=== PATIENT | male | born 1965 | race Caucasian/White ===

== ENCOUNTER 2022-05-03 10:24 | Outpatient (CLI) | payer MEDICARE, SELFPAY ==
--- NOTE | ~2022-05-03 | XR_ITS ---
EXAMINATION: XR chest 2V Exam Date/Time: 05/03/2022 10:40 CDT HISTORY: R06.02 - Shortness of breath, COPD Comparison: 07/07/2019 and 07/17/2017. RESULT: Lines, tubes, and devices: None. Lungs and pleura: Bibasilar scar/atelectasis. Patchy groundglass opacities in the right lower lobe. Cardiomediastinal silhouette: Stable cardiomediastinal silhouette. Other: No acute osseous or upper abdominal finding. IMPRESSION: Right lung opacities may reflect infection, including atypical/viral infection. Bibasilar scar/atelec tasis. Reviewed, dictated and finalized at location K. IMPRESSION: Right lung opacities may reflect infection, including atypical/viral infection. Bibasilar scar/atelectasis.
[2022-05-03 10:57] LABS: Basophils Absolute Auto 0.1 K/mm3 (0.0-0.1); Basophils Percent Auto 0.8 % (0.2-1.2); Eosinophils Absolute Auto 0.1 K/mm3 (0-0.3); Eosinophils Percent Auto 1.4 % (0-4.4); Hemoglobin 16.5 g/dL (14.0-18.0); Immature Granulocyte Absolute 0.05 K/mm3 (0.00-0.031); Immature Granulocyte Percent A 0.7 % (0-0.5); Lymphocytes Absolute Auto 2.11 K/mm3 (0.9-3.2); Lymphocytes Percent Auto 28.6 % (18.3-44.2); Mean Corpuscular HGB Conc 33.7 g/dl (32-36); Mean Corpuscular Volume 92.1 fl (80-100); Monocytes Absolute Auto 0.6 K/mm3 (0.1-0.6); Neutrophils Absolute Auto 4.5 K/mm3 (1.3-6.7); Neutrophils Percent Auto 60.5 % (45.5-73.1); Platelet Count Result 215 k/mm3 (150-375); Red Blood Count 5.32 M/mm3 (4.6-6.20); Red Cell Distribution Width 13.3 % (11.5-14.5); White Blood Count 7.4 K/mm3 (4.5-10.0)
[2022-05-03 11:25] LABS: Alanine Aminotransferase 44 U/L (6-50); Albumin Level 4.8 g/dL (3.5-5.1); Alkaline Phosphatase 70 U/L (38-126); Anion Gap 9 mmol/L (8-16); Aspartate Amino Transferase 33 U/L (17-59); Bilirubin,Total 0.5 mg/dL (0.2-1.3); Blood Urea Nitrogen 20 mg/dL (9-20); Calcium 9.2 mg/dL (8.4-10.2); Carbon Dioxide 29 mmol/L (22-30); Chloride 102 mmol/L (98-107); Cholesterol 210 mg/dL (0-200); Estimated Glomerular Filt Rate > 60; Glucose 140 mg/dL (65-110); HDL Direct 43 mg/dL; Sodium 140 mmol/L (137-145); Triglycerides 223 mg/dL (<150)
[2022-05-03 11:33] LABS: LDL Cholesterol Direct 124 mg/dL
[2022-05-03 11:56] LABS: Prostate Specific Antigen 3.1 ng/mL (< OR = 4.0)
== END 2022-05-03 10:25 | disposition home or self-care (01) ==
PROVIDERS: PCP Family Medicine; Visit Provider Physician Assistant Medical
DX: Z12.5 Encounter for screening for malignant neoplasm of prostate (principal); I10 Essential (primary) hypertension; R06.02 Shortness of breath; J44.9 Chronic obstructive pulmonary disease, unspecified; R73.09 Other abnormal glucose; R92.8 Other abnormal and inconclusive findings on diagnostic imaging of breast
CPT/HCPCS: 36415; 71046; 80053; 80061; 83036; 84153; 84443; 85025; G0103

== ENCOUNTER 2022-05-09 07:20 | Outpatient (CLI) | payer MEDICARE, SELFPAY ==
--- NOTE | ~2022-05-09 | CT_ITS ---
EXAMINATION: CT diagnostic chest wo con DATE: 05/09/2022 08:07 INDICATION: Patchy groundglass densities reported in right lower lobe on 05/03/2022 2 view chest TECHNIQUE: Computed tomography (CT) of the chest was performed without intravenous contrast. Automate d exposure control and iterative reconstruction technique were employed. Exam dose: 254.54 mGy-cm to angela exam DLP. COMPARISON: 05/03/2022 PA and lateral chest FINDINGS: Prominent discoid bands of atelectasis or scarring are noted arising lung base including mi ddle lobe and lower lobe and to a lesser extent left lower lobe. Mild to moderate emphysematous changes of the lungs. Normal size and homogeneous density of the thyroid gland. No hilar or mediastinal mass lesion or lymp hadenopathy. No thoracic aortic aneurysm. Normal heart size. No pericardial or pleural effusion. Extensive hepatic steatosis with minimal pericholecystic sparing Approximately 5 mm nonobstructing upper pole right renal calculus is incidentally noted. Normal morphology of the adrenal glands. Diffuse idiopathic skeletal hyperostosis of the thoracic spine. No suspicious osteolytic or osteoblas tic lesions are noted. IMPRESSION: Discoid atelectasis or scarring in the base of the middle and right lower lobe central l niecy extent left lower lobe Mild to moderate emphysema Hepatic steatosis Nonobstructing right renal calculus Reviewed, dictated and finalized at Location A. Reviewed, dictated and finalized at location B. IMPRESSION: Discoid atelectasis or scarring in the base of the middle and righ t lower lobe central lesser extent left lower lobe Mild to moderate emphysema Hepatic steatosis Nonobstructing right renal calculus
== END 2022-05-09 07:21 | disposition home or self-care (01) ==
PROVIDERS: PCP Family Medicine; Visit Provider Physician Assistant Medical
DX: J44.9 Chronic obstructive pulmonary disease, unspecified (principal); R06.02 Shortness of breath; R91.8 Other nonspecific abnormal finding of lung field; J98.11 Atelectasis; K76.0 Fatty (change of) liver, not elsewhere classified; N20.0 Calculus of kidney
CPT/HCPCS: 71250

== ENCOUNTER 2022-05-29 14:43 | Outpatient (CLI) | payer MEDICARE, SELFPAY ==
--- NOTE | ~2022-05-29 | XR_ITS ---
EXAM: XR abdomen/kub 1V DATE: 05/29/2022 14:59 HISTORY: RT RENAL STONE . COMPARISON: None available. FINDINGS: Right basilar scar/atelectasis. Normal bowel gas pattern. No organomegaly. 3-4 mm right up per pole calcification. Punctate density projects over the left mid/inferior pole may also represent a renal calcification. Degenerative change in lumbar spine. IMPRESSION: Stable right nephrolithiasis. Possible punctate left renal calcification. Reviewed, dictated and finalized at location K. IMPRESSION: Stable right nephrolithiasis. Possible punctate left renal calcific ation.
== END 2022-05-29 14:44 | disposition home or self-care (01) ==
PROVIDERS: PCP Family Medicine; Visit Provider Nurse Practitioner Family
DX: N20.0 Calculus of kidney (principal)
CPT/HCPCS: 74018

== ENCOUNTER 2022-06-19 13:06 | Outpatient (CLI) | payer MEDICARE, SELFPAY ==
--- NOTE | 2022-06-19 13:12 | ECG_ITS ---
Measurements Intervals [place] Rate: 83 P: 8 MS: 116 QRS: 77 QRSD: 86 T: 53 QT: 338 QTc: 399 Interpretive Statements BASELINE ARTIFACT, POOR ECG QUALITY SINUS RHYTHM WITH SHORT MS INTERVAL LOW QRS VOLTAGE IN EXTREMITY LEADS [QRS DEFLECTION < 0.5 mV IN LIMB LEADS] BORDERLINE ECG NO PREVIOUS ECG AVAILABLE FOR COMPARISON Electronically Signed On 06-19-2022 14:39:50 CDT by Jarek Raymundo M.D.
[2022-06-19 14:00] LABS: INR 1.1; Prothrombin Time 13.3 Seconds (11.1-14.7)
[2022-06-19 14:01] LABS: Partial Thromboplastin Time 31.1 SECONDS (22.3-36.8)
== END 2022-06-19 13:07 | disposition home or self-care (01) ==
PROVIDERS: PCP Family Medicine; Visit Provider Urology
DX: Z01.818 Encounter for other preprocedural examination (principal); N20.0 Calculus of kidney; I10 Essential (primary) hypertension
CPT/HCPCS: 36415; 85610; 85730; 87086; 93005

== ENCOUNTER 2022-06-23 01:23 | Day surgery (SDC) | payer MEDICARE, SELFPAY ==
[2022-06-16 10:25] VITALS: BMI 28.5
--- NOTE | 2022-06-16 10:37 | PC.NURSE ---
Report to the Outpatient Waiting Room, entrance under the green pavilion located off [facility], at time 7:30 on date 06/23/22. OR Time: 9:30. - You and your visitor will be asked a series of questions to screen for COVID 19 for your protection. - Only one visitor is allowed at this time. - The patient visitor is requested to leave or wait in car when not with patient. - A mask is required within the hospital. Patients may have clear liquids (water, carbonated beverages, clear teas, apple juice) until 3 hours prior to surgery (6:30) with a maximum of 20 ounces. - No food from midnight until time of surgery Take the following medications with a SIP of water the morning of surgery: INHALERS, VALIUM (IF NEEDED), FLUOXETINE, NEBIVOLOL, QUETIAPINE Medications to discontinue per physician: MELOXICAM Date to take last dose: PER DR. MCINTYRE Please no make-up, nail chinese, hairspray, perfume, deodorant, or body powder the day of surgery. No jewelry (including any body piercings) or valuables the day of surgery, leave them at home. Please take a shower or bath the night before, or the morning of, surgery with an antibacterial soap. Wear comfortable, loose fitting clothing. - Jewelry must be removed prior to entering the operating room. Rings and piercings that are not removed may be cut off. - The hospital will not accept responsibility for valuables. - Please leave all valuables, including medications, at home the day of surgery. If you are going home after surgery, a licensed industrial truck driver must drive you home. - NO public transportation without another adult. - We recommend that an adult stay with you for 24 hours following discharge. - We also recommend that you do not drive, make important decision, drink alcoholic beverages, or take any drugs that were not prescribed by your health care provider for at least 24 hours after your discharge time. Follow any additional instructions given to you from your surgeon. If you or anyone in your household have experienced Covid symptoms in the past week, please notify your surgeon or the nurse liaison at the phone number below for possible testing. Telephone instructions given to PT - JOHANA LEVI and asked if any additional questions and then verbalized understanding. Patient advised to call surgeon office or pre surgery nurse liaison [phone] if any additional questions.
[2022-06-23] VITALS (7 sets, daily range): BP systolic 93–152; BP diastolic 57–100; PULSE 64–88; RESP 14–24; TEMP 36.3–36.6; O2SAT 94–100
--- NOTE | ~2022-06-23 | XR_ITS ---
EXAMINATION: XR abdomen/kub 1V DATE: 06/23/2022 07:50 INDICATION: Kidney stone. TECHNIQUE: A supine view of the abdomen on 2 radiographs was obtained. COMPARISON: Chest CT 05/09/2022, lumbar spine radiographs 10/28/2018, abdomen radiographs 05/29/2022 FINDINGS: There are no dilated loops of bowel. There are phleboliths in the pelvis. There is a 3 mm s tone in left kidney. There is a 4 mm stone in right kidney. IMPRESSION: 1. Bilateral kidney stones. Reviewed, dictated and finalized at location A. IMPRESSION: 1. Bilateral kidney stones.
--- NOTE | 2022-06-23 06:59 | WPDHPUPDATE1 ---
History and Physical Update Update Date/Time: 06/23/22 06:59 History and Physical has been reviewed, including an updated exam of the patient. There are NO changes in the patient's condition. Risks, benefits, and alternatives have been discussed and questions answered. Patient agrees to proceed with procedure.
[2022-06-23] MEDS: LACTATED RINGERS 1,000 ML 30 ML IV CONT (08:15)
--- NOTE | 2022-06-23 08:44 | WPDANESEPPF ---
Anes - Initial Pre Proc Eval Procedure: Operation Date: 06/23/22 09:30 Proposed Procedures p Right Renal Extracorporeal Shock Wave Lithotripsy, Possible Right Stent Placement - Ed Ferrer MD Date/Time: 06/23/22 08:44 Surgeon: Ed Ferrer MD Pre Op Diagnosis: right renal stones Patient Data Age: 57 Gender: M Height: 1.75 m Weight: 87.54 kg Allergies Allergy/AdvReac Type Severity Reaction Status Date / Time No Known Allergies Allergy Verified 06/16/22 10:22 Home Medications Medication Instructions Recorded Confirmed Type diazepam 2 mg tablet 5 mg PO TID PRN Anxiety 09/23/19 06/16/22 History fluoxetine 40 mg capsule (Prozac) 40 mg PO BID 09/23/19 06/16/22 History quetiapine 300 mg tablet (Seroquel) 300 mg PO BID 09/23/19 06/16/22 History albuterol sulfate 90 mcg/actuation 2 puff inhalation Q4H PRN 03/13/22 06/16/22 Rx aerosol inhaler shortness of breath or wheezing #18 grams atorvastatin 20 mg tablet See Rx Instructions .Route 05/02/22 06/16/22 Rx .COMPLEX #90 tabs budesonide 160 mcg-glycopyr 9 2 inh inhalation BID #10.7 grams 05/02/22 06/16/22 Rx mcg-formot 4.8 mcg/actuation HFA inhaler (Breztri Aerosphere) lisinopril 40 mg tablet See Rx Instructions .Route 05/02/22 06/16/22 Rx .COMPLEX #90 tabs meloxicam 15 mg tablet See Rx Instructions .Route 05/02/22 06/16/22 Rx .COMPLEX #90 tabs nebivolol 2.5 mg tablet (Bystolic) See Rx Instructions .Route 05/02/22 06/16/22 Rx .COMPLEX #90 tabs omeprazole 40 mg capsule,delayed See Rx Instructions .Route 05/02/22 06/16/22 Rx release .COMPLEX #90 caps ropinirole 4 mg tablet 4 mg PO QHS #90 tabs 05/02/22 06/16/22 Rx tamsulosin 0.4 mg capsule See Rx Instructions .Route 05/02/22 06/16/22 Rx .COMPLEX #90 caps tizanidine 2 mg tablet 2 mg PO ONCE muscle spasticity #90 05/02/22 06/16/22 Rx tabs Patient hx anesthesia problems: none Family hx anesthesia problems: none Results Review: All pre-operative results and documents have been reviewed as part of the pre-operative evaluation. [facility] Past Medical History Medical History Bipolar 1 disorder, depressed, partial remission BMI 26.0-26.9,adult BMI 28.0-28.9,adult COPD (chronic obstructive pulmonary disease) Essential (primary) hypertension Mixed hyperlipidemia Prediabetes Tobacco abuse Family History Family History Mother Hypertension Father Hypertension Cerebrovascular accident Grandparent Family history of malignant neoplasm of brain Other Family history of malignant neoplasm Social History Social History Smoking status: Former smoker Tobacco type: cigars Second hand tobacco smoke exposure: No Smoking end date: 11/12/21 Additional smoking assessment comments: 5-6 CIGARS/DAY UNTIL NOVEMBER Alcohol intake: never Substance use: current Substance use type: marijuana Living arrangements: with family Additional occupation/education comments: [employer] Gender identity (if verbalized by the patient): Male Spiritual care concerns: No Anes - Eval Final PreProcedure Day of Procedure 06/23/22 08:44 Patient weight: overweight Heart: regular rate and rhythm Lungs: decreased breath sounds Airway: Mallampati scale class II Neurological: alert and oriented Last oral intake: >/= 8 hours ASA classification: III Emergent: no Anesthetic plan: proceed Anesthesia type and monitoring: general LMA and standard monitoring Results Review: All pre-operative results and documents have been reviewed as part of the pre-operative evaluation. Informed Consent: The patient's anesthetic plan and its attendant risks and benefits were discussed with the patient/family/POA. Questions were solicited and answers provided to the satisfaction of the patient/family/POA.
[2022-06-23] MEDS: ceFAZolin 2 GM/D5W 50 ML 2 GM/50 ML BAG IVPB (09:31)
--- NOTE | 2022-06-23 10:05 | W.PM.PROC2 ---
Procedure Note - Detailed Date of Procedure 06/23/22 Pre-op Diagnosis Right renal stones Post-op Diagnosis Same Procedure Performed Right ESWL Surgeon Ed Ferrer MD Description of Procedure The patient was brought to the operative suite where he was placed in the supine position on the Dornier lithotripsy table. The focal point of the lithotripter was placed at a 5mm right renal calculus. A total of 2500 shocks were delivered at a power setting of 4. There appeared to be good fragmentation of the stone. The patient tolerated the procedure well and was taken to the recovery room in good condition. Drains No Packing No Pathology None sent Complications No immediate complications Condition Stable Disposition PACU
== END 2022-06-23 11:45 | disposition home or self-care (01) ==
PROVIDERS: PCP Family Medicine; Visit Provider Urology
PROC: (CPT 50590; principal; 2022-06-23 09:30)
DX: N20.0 Calculus of kidney (principal); Z79.51 Long term (current) use of inhaled steroids; F31.9 Bipolar disorder, unspecified; J44.9 Chronic obstructive pulmonary disease, unspecified; I10 Essential (primary) hypertension; R73.03 Prediabetes; E78.2 Mixed hyperlipidemia; Z87.891 Personal history of nicotine dependence; F12.90 Cannabis use, unspecified, uncomplicated; E78.00 Pure hypercholesterolemia, unspecified
CPT/HCPCS: 50590; 36415; 74018; 85610; 85730; 87086; 93005; J0690; J1100; J2370; J2405; J2704; J7120

== ENCOUNTER 2022-07-07 09:27 | Outpatient (CLI) | payer MEDICARE, SELFPAY ==
--- NOTE | ~2022-07-07 | XR_ITS ---
EXAMINATION: XR abdomen/kub 1V INDICATION: Calculus of the kidney TECHNIQUE: Supine views of the abdomen were obtained on 2 radiographs. COMPARISON: 06/23/2022 FINDINGS: Bowel contents project over the kidneys limiting sensitivity for renal stones. The previous ly described right kidney stone is not definitely identified. There appears to be a 2 mm stone in the lower pole of the left kidney. No stones or stone fragments are identified along the expected course of the ureters there is a phlebolith of the left pelvis. The bowel gas pattern is normal. The visual ized lung bases are clear. IMPRESSION: 1. Likely interval lithotripsy of the previously described right kidney stone. 2. Stable left nephrolithiasis. Reviewed, dictated and finalized at location B.
== END 2022-07-07 09:28 | disposition home or self-care (01) ==
PROVIDERS: PCP Family Medicine; Visit Provider Urology
DX: N20.0 Calculus of kidney (principal)
CPT/HCPCS: 74018

== ENCOUNTER 2022-07-09 10:10 | Emergency (ER) | payer MEDICARE, SELFPAY ==
--- NOTE | ~2022-07-09 | CT_ITS ---
EXAMINATION: CT abdomen pelvis wo con DATE: 07/09/2022 11:22 INDICATION: Right flank pain TECHNIQUE: Computed tomography (CT) of the abdomen and pelvis was performed without intravenous contr ast. The dose-length product (DLP) was 475.19 mGy-cm. Automated exposure control and iterative recons truction technique were employed. COMPARISON: None FINDINGS: Minimal dependent atelectasis is present in the lung bases. The heart size is normal. The l iver is diffusely low in attenuation when compared with the spleen, consistent with hepatic steatosis . The spleen, pancreas, gallbladder, and adrenal glands are normal. There is a 4 mm stone of the prox imal right ureter causing mild hydronephrosis. There is a 3 mm nonobstructing stone of the left kidne y. No pathologically enlarged abdominal or pelvic lymph nodes are identified. There is no free intrap eritoneal gas or evidence of bowel obstruction. The appendix is normal. There are fat-containing umbi lical and periumbilical hernias. There is moderate lumbar spondylosis. IMPRESSION: 1. 4 mm stone of the proximal right ureter causing mild hydronephrosis. 2. Nonobstructing left nephrolithiasis. 3. Diffuse hepatic steatosis. Reviewed, dictated and finalized at location A.
[2022-07-09 10:14] VITALS: BP 169/90; PULSE 69; RESP 20; TEMP 36.9; O2SAT 99
[2022-07-09 10:55] LABS: Basophils Absolute Auto 0.1 K/mm3 (0.0-0.1); Basophils Percent Auto 0.9 % (0.2-1.2); Eosinophils Absolute Auto 0.1 K/mm3 (0-0.3); Eosinophils Percent Auto 1.2 % (0-4.4); Hematocrit 45.2 % (42.0-52.0); Hemoglobin 15.6 g/dL (14.0-18.0); Immature Granulocyte Absolute 0.04 K/mm3 (0.00-0.031); Immature Granulocyte Percent A 0.5 % (0-0.5); Lymphocytes Absolute Auto 1.72 K/mm3 (0.9-3.2); Lymphocytes Percent Auto 22.5 % (18.3-44.2); Mean Corpuscular HGB Conc 34.5 g/dl (32-36); Mean Corpuscular Hemoglobin 31.1 pg (26-34); Mean Corpuscular Volume 90.2 fl (80-100); Mean Platelet Volume 9.3 fl (7.4-10.4); Monocytes Absolute Auto 0.6 K/mm3 (0.1-0.6); Monocytes Percent Auto 7.7 % (2.6-8.5); Neutrophils Absolute Auto 5.2 K/mm3 (1.3-6.7); Neutrophils Percent Auto 67.2 % (45.5-73.1); Platelet Count Result 225 k/mm3 (150-375); Red Blood Count 5.01 M/mm3 (4.6-6.20); Red Cell Distribution Width 12.6 % (11.5-14.5); White Blood Count 7.7 K/mm3 (4.5-10.0)
[2022-07-09] MEDS: SODIUM CHLORIDE 0.9% IV 1,000 ML 999 ML IV CONT (10:55)
[2022-07-09] MEDS: MORPHINE SULFATE (*CRX) 4 MG/ML INJ IV PUSH (10:55)
[2022-07-09] MEDS: ONDANSETRON INJ 4 MG/2 ML VIAL IV PUSH (10:55)
[2022-07-09 11:09] LABS: Alanine Aminotransferase 35 U/L (6-50); Albumin Level 4.8 g/dL (3.5-5.1); Alkaline Phosphatase 76 U/L (38-126); Anion Gap 12 mmol/L (8-16); Aspartate Amino Transferase 28 U/L (17-59); Bilirubin,Total 0.5 mg/dL (0.2-1.3); Blood Urea Nitrogen 29 mg/dL (9-20); Calcium 9.5 mg/dL (8.4-10.2); Carbon Dioxide 26 mmol/L (22-30); Chloride 104 mmol/L (98-107); Estimated CRCL calculation 55 ml/min; Estimated Glomerular Filt Rate 57; Glucose 125 mg/dL (65-110); Potassium 4.2 mmol/L (3.4-5.0); Sodium 142 mmol/L (137-145)
[2022-07-09 11:38] LABS: Mucus Urine Heavy /lpf; RBC Urine 21-50 /hpf (0-2); WBC Urine 16-20 /hpf
[2022-07-09 11:43] LABS: Appearance Urine Clear (Clear); Bilirubin Urine 1+ (Negative); Blood Urine 3+ (Negative); Color Urine Yellow (Yellow); Glucose Urine UA Negative (Negative); Ketones Urine Negative (Negative); Leukocyte Esterase Ur Negative LEU/UL (Negative); Nitrate Urine Negative (Negative); Protein Urine 1+ mg/dL (Negative); Specific Grav Ur >= 1.030 (1.001-1.035); Urobilinogen Urine 0.2 mg/dL (<2.0); pH Urine 5.5 (5.0-9.0)
[2022-07-09 11:47] LABS: Add Urine Microscopic? YES
[2022-07-09] MEDS: KETOROLAC 30 MG/ML VIAL (*BKC) IV PUSH (11:55)
--- NOTE | 2022-07-09 12:32 | ED.GENADULT ---
HPI - General Adult General Chief complaint: Abdominal Pain Stated complaint: right lower back and abd pain for 3 days Time Seen by Provider: 07/09/22 10:20 History of Present Illness HPI narrative: Patient is a 57-year-old male who presents ER with sudden onset right-sided flank pain. Radiates into his upper abdomen. Associate with nausea and vomiting and sweats. No urinary frequency urgency or dysuria. No hematuria. Recently underwent lithotripsy for kidney stones by Dr. Ferrer. Patient was then found to be constipated recently has been taking some stool softener. No alleviating factors nor light aggravating factors at this time. Related Data Home Medications Medication Instructions Recorded Confirmed diazepam 2 mg tablet 5 mg PO TID PRN Anxiety 09/23/19 06/23/22 fluoxetine 40 mg capsule (Prozac) 40 mg PO BID 09/23/19 06/23/22 quetiapine 300 mg tablet (Seroquel) 300 mg PO BID 09/23/19 06/23/22 Allergies Allergy/AdvReac Type Severity Reaction Status Date / Time No Known Allergies Allergy Verified 06/23/22 09:40 Review of Systems Review of Systems: All systems reviewed & are unremarkable except as noted in HPI and below Constitutional: Constitutional: Denies chills, Denies fatigue and Denies fever(s) Comments: Sweats Cardiovascular: Cardiovascular: Denies chest pain and Denies rapid heart rate Respiratory: Respiratory: Denies cough and Denies dyspnea Gastrointestinal: Gastrointestinal: Reports abdominal pain, Reports nausea and Reports vomiting Genitourinary: Genitourinary: Denies hematuria, Denies dysuria and Denies urinary frequency Comments: Right flank pain PMFSH Past Medical History Medical History (Updated 07/09/22 @ 12:34 by Mike Mayes MD) Bipolar 1 disorder, depressed, partial remission BMI 26.0-26.9,adult BMI 28.0-28.9,adult COPD (chronic obstructive pulmonary disease) Essential (primary) hypertension Mixed hyperlipidemia Prediabetes Tobacco abuse Surgical History Surgical History (Updated 07/09/22 @ 12:39 by Mike Mayes MD) History of lithotripsy Family History Family History Mother Hypertension Father Hypertension Cerebrovascular accident Grandparent Family history of malignant neoplasm of brain Other Family history of malignant neoplasm Social History Social History Smoking status: Former smoker Tobacco type: cigars Second hand tobacco smoke exposure: No Smoking end date: 11/12/21 Additional smoking assessment comments: 5-6 CIGARS/DAY UNTIL NOVEMBER Alcohol intake: never Substance use: current Substance use type: marijuana Additional occupation/education comments: [employer] Gender identity (if verbalized by the patient): Male Sexual Orientation (if Verbalized by the Patient): Straight or Heterosexual Spiritual care concerns: No Exam Narrative: GENERAL: Uncomfortable-appearing, well-nourished, and in mild e distress. HEAD: Normocephalic, atraumatic ENT: Mucous membranes moist. CHEST: Clear to auscultation. No respiratory distress. HEART: Regular rate and rhythm. Normal peripheral pulses. ABDOMEN: Soft, nontender, nondistended. No CVA tenderness EXTREMITIES: Normal range of motion. No edema. SKIN: Warm, moist, no rash. NEURO: Alert and oriented x3. PSYCH: Normal mood and affect. Course Course Emergency Course: Discussed case with Dr. Warren who will have Dr. Ferrer reach out to the patient tomorrow. No overt infection but urine sent for culture and patient be placed on cephalexin. Discussed diagnosis and treatment plan with patient and who verbalized understanding. Vital Signs Vital signs: Vital Signs Temperature 98.4 F 07/09/22 10:14 Pulse Rate 69 07/09/22 10:14 Respiratory Rate 20 07/09/22 10:14 Blood Pressure 169/90 H 07/09/22 10:14 Pulse Oximetry 99
[2022-07-09 12:58] VITALS: BP 155/89; PULSE 75; RESP 16; O2SAT 98
== END 2022-07-09 13:22 | disposition home or self-care (01) ==
PROVIDERS: Emergency Provider Emergency Medicine; PCP Family Medicine
DX: N13.2 Hydronephrosis with renal and ureteral calculous obstruction (principal); J44.9 Chronic obstructive pulmonary disease, unspecified; I10 Essential (primary) hypertension; E78.2 Mixed hyperlipidemia; R73.03 Prediabetes; F31.9 Bipolar disorder, unspecified; Z87.891 Personal history of nicotine dependence; K76.0 Fatty (change of) liver, not elsewhere classified
CPT/HCPCS: 36415; 74176; 80053; 81001; 85025; 87086; 96361; 96374; 96375; 99284; J1885; J2270; J2405; J7030

== ENCOUNTER 2022-07-13 00:32 | Day surgery (SDC) | payer MEDICARE, SELFPAY ==
[2022-07-12 12:45] VITALS: BMI 28.0
--- NOTE | 2022-07-12 12:50 | PC.NURSE ---
Report to the Outpatient Waiting Room, entrance under the green pavilion located off [facility], at time 0915 on date 07/13/22. OR Time: 1115. - You and your visitor will be asked to self-screen and do not enter if you have any COVID symptoms. - Only one visitor and NO children visitors are allowed at this time. - The patient visitor is requested to leave or wait in car when not with patient due to restrictions. - A mask is required within the hospital. Patients may have clear liquids (water, carbonated beverages, clear teas, apple juice) until 3 hours prior to surgery with a maximum of 20 ounces. - No food from midnight until time of surgery Take the following medications with a SIP of water the morning of surgery: INHALERS, CEPHALEXIN, DIAZEPAM (IF NEEDED), FLUOXETINE, PAIN PILL (IF NEEDED), NEBIVOLOL, QUETIAPINE Medications to discontinue per physician: MELOXICAM Date to take last dose: PER DR. MCINTYRE Please no make-up, nail australian, hairspray, perfume, deodorant, or body powder the day of surgery. No jewelry (including any body piercings) or valuables the day of surgery, leave them at home. Please take a shower or bath the night before, or the morning of, surgery with an antibacterial soap. Wear comfortable, loose fitting clothing. - Jewelry must be removed prior to entering the operating room. Rings and piercings that are not removed may be cut off. - The hospital will not accept responsibility for valuables. - Please leave all valuables, including medications, at home the day of surgery. If you are going home after surgery, a licensed otr tanker truck driver must drive you home. - NO public transportation without another adult. - We recommend that an adult stay with you for 24 hours following discharge. - We also recommend that you do not drive, make important decision, drink alcoholic beverages, or take any drugs that were not prescribed by your health care provider for at least 24 hours after your discharge time. Follow any additional instructions given to you from your surgeon. If you or anyone in your household have experienced Covid symptoms in the past week, please notify your surgeon or the nurse liaison at the phone number below for possible testing. Telephone instructions given to PT - LUAN LEVI and asked if any additional questions and then verbalized understanding. Patient advised to call surgeon office or pre surgery nurse liaison [phone] if any additional questions.
--- NOTE | 2022-07-12 13:31 | WPDANESEPPF ---
Anes - Initial Pre Proc Eval Procedure: Operation Date: 07/13/22 11:15 Proposed Procedures p Cystoscopy, Right Ureteroscopy, Right Stone Extraction, Right Retrograde Pyelogram, Right Stent Placement, Possible Holmium Laser Lithotripsy - Ed Ferrer MD Date/Time: 07/12/22 13:31 Surgeon: Ed Ferrer MD Pre Op Diagnosis: Rt Renal Stone Patient Data Age: 57 Gender: M Height: 1.75 m Weight: 86 kg Allergies Allergy/AdvReac Type Severity Reaction Status Date / Time No Known Allergies Allergy Verified 07/13/22 09:54 Home Medications Medication Instructions Recorded Confirmed Type diazepam 2 mg tablet 5 mg PO TID PRN Anxiety 09/23/19 07/13/22 History fluoxetine 40 mg capsule (Prozac) 40 mg PO BID 09/23/19 07/13/22 History quetiapine 300 mg tablet (Seroquel) 300 mg PO BID 09/23/19 07/13/22 History albuterol sulfate 90 mcg/actuation 2 puff inhalation Q4H PRN 03/13/22 07/13/22 Rx aerosol inhaler shortness of breath or wheezing #18 grams atorvastatin 20 mg tablet See Rx Instructions .Route 05/02/22 07/13/22 Rx .COMPLEX #90 tabs budesonide 160 mcg-glycopyr 9 2 inh inhalation BID #10.7 grams 05/02/22 07/13/22 Rx mcg-formot 4.8 mcg/actuation HFA inhaler (Breztri Aerosphere) lisinopril 40 mg tablet See Rx Instructions .Route 05/02/22 07/13/22 Rx .COMPLEX #90 tabs meloxicam 15 mg tablet See Rx Instructions .Route 05/02/22 07/13/22 Rx .COMPLEX #90 tabs nebivolol 2.5 mg tablet (Bystolic) See Rx Instructions .Route 05/02/22 07/13/22 Rx .COMPLEX #90 tabs omeprazole 40 mg capsule,delayed See Rx Instructions .Route 05/02/22 07/13/22 Rx release .COMPLEX #90 caps tamsulosin 0.4 mg capsule See Rx Instructions .Route 05/02/22 07/13/22 Rx .COMPLEX #90 caps tizanidine 2 mg tablet 2 mg PO ONCE muscle spasticity #90 05/02/22 07/13/22 Rx tabs ropinirole 4 mg tablet 4 mg PO QHS #90 tabs 06/27/22 07/13/22 Rx cephalexin 500 mg capsule 500 mg PO Q12H #10 caps 07/09/22 07/13/22 Rx hydrocodone 5 mg-acetaminophen 325 1 tablet PO Q6H PRN pain #20 tabs 07/09/22 07/13/22 Rx mg tablet ondansetron 4 mg disintegrating 4 mg PO Q6H PRN nausea and 07/09/22 07/13/22 Rx tablet vomiting #10 tabs tamsulosin 0.4 mg capsule 0.4 mg PO DAILY #7 caps 07/09/22 07/13/22 Rx Patient hx anesthesia problems: none Family hx anesthesia problems: none Results Review: All pre-operative results and documents have been reviewed as part of the pre-operative evaluation. FOR[facility]LY [facility] Past Medical History Medical History (Updated 07/10/22 @ 00:00 by Brian Hurtado) Bipolar 1 disorder, depressed, partial remission BMI 26.0-26.9,adult BMI 28.0-28.9,adult COPD (chronic obstructive pulmonary disease) Essential (primary) hypertension Mixed hyperlipidemia Prediabetes Tobacco abuse Surgical History Surgical History (Updated 07/09/22 @ 12:39 by Mike Mayes MD) History of lithotripsy Family History Family History Mother Hypertension Father Hypertension Cerebrovascular accident Grandparent Family history of malignant neoplasm of brain Other Family history of malignant neoplasm Social History Social History Smoking status: Former smoker Tobacco type: cigars Second hand tobacco smoke exposure: No Smoking end date: 11/12/21 Additional smoking assessment comments: 5-6 CIGARS/DAY UNTIL NOV 2021 Alcohol intake: never Substance use: current Substance use type: marijuana Living arrangements: with family 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
[2022-07-13] VITALS (8 sets, daily range): BP systolic 113–162; BP diastolic 75–98; PULSE 55–71; RESP 12–18; TEMP 36.2–36.9; O2SAT 95–100
--- NOTE | ~2022-07-13 | XR_ITS ---
EXAMINATION: XR retrograde pyelo w/stent RT DATE: 07/13/2022 11:22 INDICATION: Right ureteral stone. TECHNIQUE: 38 intraoperative fluoroscopic views of the abdomen and pelvis were obtained. I was not pr esent. Fluoroscopy exposure time was 97 seconds. COMPARISON: CT abdomen and pelvis 07/09/2022 FINDINGS: The right-sided retrograde pyelogram is unremarkable. The final images demonstrate a right internal ureteral stent in expected position. IMPRESSION: 1. Right internal ureteral stent in expected position. Reviewed, dictated and finalized at location A.
--- NOTE | 2022-07-13 06:45 | WPDHPUPDATE1 ---
History and Physical Update Update Date/Time: 07/13/22 06:45 History and Physical has been reviewed, including an updated exam of the patient. There are NO changes in the patient's condition. Risks, benefits, and alternatives have been discussed and questions answered. Patient agrees to proceed with procedure.
[2022-07-13] MEDS: LACTATED RINGERS 1,000 ML 30 ML IV CONT ×2 (09:38→12:05)
[2022-07-13] MEDS: ceFAZolin 2 GM/D5W 50 ML 2 GM/50 ML BAG IVPB (10:27)
[2022-07-13] MEDS: KETOROLAC 30 MG/ML VIAL (*BKC) IV PUSH (10:29)
--- NOTE | 2022-07-13 11:22 | P.OP_ITS ---
Procedure Note - Detailed Date of Procedure 07/13/22 Pre-op Diagnosis Rt Ureteral Stone Post-op Diagnosis Same Procedure Performed cystoscopy, right ureteroscopy with laser lithotripsy, stone extraction, right retrograde pyelogram and right ureteral stent placement Surgeon Ed Ferrer MD Description of Procedure Patient is brought to the operative suite was prepped draped in routine sterile fashion while in dorsal lithotomy position after the uneventful induction general endotracheal anesthetic. Cystoscopy is undertaken with a 19 F rigid cystoscope. He has moderate lateral lobe hyperplasia of the prostate with a 2.5 cm prostatic urethra. Bladder shows some slight trabeculation. There was no intravesical foreign body or neoplasm. Has a single orthotopic ureteral orifice bilaterally. A 0.035 in glidewire was advanced into the right renal pelvis. I had difficulty dilating the distal ureter with an 8 F 10 F dilator because of apparent stricture just below the iliac vessels. Dilated that site with a 10 cm balloon. Was then able to pass a 7.5 F flexible ureteral scope. Proximal ureteral stone is identified. Using a 273 micron holmium laser fiber I fractured the smaller pieces and removed all pieces with a 1 F disposable stone basket. In retrograde pyelogram was obtained to outline the collecting system a nd ensure appropriate placement of 4.8 F double-J ureteral stent. Scopes and wires removed the patient was taken recovery good condition. Drains Yes Packing No Pathology Yes Complications No immediate complications
== END 2022-07-13 13:05 | disposition home or self-care (01) ==
PROVIDERS: PCP Family Medicine; Visit Provider Urology
PROC: (CPT 52352; principal; 2022-07-13 11:15)
PROC: (CPT 52356; 2022-07-13 11:15)
DX: N20.1 Calculus of ureter (principal); Z79.51 Long term (current) use of inhaled steroids; F31.9 Bipolar disorder, unspecified; J44.9 Chronic obstructive pulmonary disease, unspecified; I10 Essential (primary) hypertension; E78.2 Mixed hyperlipidemia; R73.03 Prediabetes; Z87.891 Personal history of nicotine dependence; F12.90 Cannabis use, unspecified, uncomplicated
CPT/HCPCS: 52356; 74420; 82365; 88300; A9270; C1726; C1758; C1769; C1894; C2617; J0131; J0690; J1100; J1885; J2250; J2405; J2704; J3010; J7120

== ENCOUNTER 2023-08-09 10:55 | Outpatient (CLI) | payer MEDICARE, SELFPAY ==
[2023-08-09 12:54] LABS: Basophils Absolute Auto 0.1 K/mm3 (0.0-0.1); Eosinophils Absolute Auto 0.2 K/mm3 (0-0.3); Eosinophils Percent Auto 3.1 % (0-4.4); Hematocrit 49.2 % (42.0-52.0); Hemoglobin 16.6 g/dL (14.0-18.0); Immature Granulocyte Absolute 0.04 K/mm3 (0.00-0.031); Immature Granulocyte Percent A 0.8 % (0-0.5); Mean Corpuscular HGB Conc 33.7 g/dl (32-36); Mean Corpuscular Hemoglobin 31.2 pg (26-34); Mean Corpuscular Volume 92.5 fl (80-100); Mean Platelet Volume 10.2 fl (7.4-10.4); Monocytes Absolute Auto 0.4 K/mm3 (0.1-0.6); Monocytes Percent Auto 8.5 % (2.6-8.5); Neutrophils Percent Auto 57.6 % (45.5-73.1); Platelet Count Result 231 k/mm3 (150-375); Red Blood Count 5.32 M/mm3 (4.6-6.20); Red Cell Distribution Width 12.7 % (11.5-14.5); White Blood Count 5.2 K/mm3 (4.5-10.0)
[2023-08-09 13:02] LABS: Hemoglobin A1C 5.6 % (<5.7)
[2023-08-09 13:04] LABS: Alanine Aminotransferase 26 U/L (6-50); Albumin Level 4.5 g/dL (3.5-5.1); Alkaline Phosphatase 65 U/L (38-126); Anion Gap 7 mmol/L (8-16); Aspartate Amino Transferase 30 U/L (17-59); Bilirubin,Total 0.5 mg/dL (0.2-1.3); Blood Urea Nitrogen 25 mg/dL (9-20); Calcium 9.1 mg/dL (8.4-10.2); Carbon Dioxide 30 mmol/L (22-30); Chloride 105 mmol/L (98-107); Cholesterol 206 mg/dL (0-200); Estimated Glomerular Filt Rate > 60; Glucose 148 mg/dL (65-110); HDL Direct 38 mg/dL; Potassium 4.1 mmol/L (3.4-5.0); Sodium 142 mmol/L (137-145); Triglycerides 111 mg/dL (<150)
[2023-08-09 13:16] LABS: LDL Cholesterol Direct 133 mg/dL
[2023-08-09 17:38] LABS: Prostate Specific Antigen 6.3 ng/mL (< OR = 4.0)
== END 2023-08-09 10:56 | disposition home or self-care (01) ==
PROVIDERS: PCP Family Medicine; Visit Provider Physician Assistant Medical
DX: N28.9 Disorder of kidney and ureter, unspecified (principal); R73.03 Prediabetes; Z12.5 Encounter for screening for malignant neoplasm of prostate; R42 Dizziness and giddiness; E78.5 Hyperlipidemia, unspecified
CPT/HCPCS: 36415; 80053; 80061; 83036; 84153; 84443; 85025; G0103

== ENCOUNTER 2025-09-11 11:24 | Outpatient (CLI) | payer MEDICARE, SELFPAY ==
--- OUTSIDE RECORDS SUMMARY | 2008-06-05 04:31 | XMS_ITS | Continuity of Care Document ---
[facility] Organization [facility] Address [address] [place] [address] [place] [address] Phone Care Team Providers Care Business Proposal Rep Name Role Phone Jv Garcia Unavailable Unavailable Procedures Procedure Date Office/outpatient Visit, [facility] Office/outpatient Visit, New Advance Directives Directive Yes / No Effective Date File Name No Information Encounters Encounter Description Practice Location Reason(s) For Visit Diagnoses Date Provider Providers Copied on Encounter Office/outpat ient Visit, [facility], [address] [place] [address] [address], [place], [place], [id number], tel:[phone] [facility] [place] No Information 8 Jose Carias. [address] [facility] , [address], [place], [address], [place]. tel:[phone] Office/outpat ient Visit, [facility], [address] [place] [address] [address], [place], [place], [id number], tel:[phone] [facility] [place] No Information 200 8 Jose Carias. [address] [facility] [address], [address], [place], [address], [place]. tel:[phone] Family History Family Member Type Diagnosis Age At Onset No Information Payers Payer name Insurance type Covered republican ID Authoryaz terrazas(s) [employer] [id number] Social History Type Description Quantity Date Captured [...]
--- OUTSIDE RECORDS SUMMARY | 2024-08-25 08:00 | XMS_ITS ---
Author Organization [facility] Address [address] [place] [address] Care Team Providers Care Assistant Director Of Nursing Name Role Phone Ofelia Fowler Primary Care [...] Male Encounters Encounter Location Date Provider Diagnosis [address] [address] 08/25/2024 Ofelia Fowler Plan Of Treatment No Information Progress Notes * Jian BROWN LDOB:[birth year] (60 yo M)Acc No.[id number]:08/25/2024 UNLOCKED PROGRESS NOTE Patient: Devi KOEHLER Jian Lara Provider: Jessica Fowler, MSN, PATENT LAW SPECIALIST, TALENT CONSULTANT-C :1965 A ge:59 Y S ex:Male Date:08/25/2024 Address:[address] [facility] Subjective: * Chief Complaints: * 1 . [...] * Electronic signature of Suyapa Fowler , [id number] on 09/11/2025 at 11:35 AM CDT Sign off status: Pending * Provider: Jessica Fowler, MSN, PATENT LAW SPECIALIST, TALENT CONSULTANT-C Date: Generated for Lisset watson/Ry/Kane on: 11:35 AM CDT
--- OUTSIDE RECORDS SUMMARY | 2024-10-06 04:20 | XMS_ITS ---
Author Organization [facility] Address [address] [place] [address] Care Team Providers Care Roof Shingler Name Role Phone Ofelia Fowler Primary Care Provider REASON FOR VISIT 4 week F/U Social History Sex Assigned At : Social History Observation Description Sex Assigned At Male Encounters Encounter Location Date Provider Diagnosis [address] [place] [address] 10/06/2024 Ofelia Fowler Plan Of Treatment No Information Progress Notes * Jian LEVI LDOB:[birth year] (60 yo M)Acc No.[id number]:10/06/2024 UNLOCKED PROGRESS NOTE Patient: Jian REY Provider: Jessica Fowler, MSN, PERCUSSION INSTRUMENT TUNER, RECLAMATION SUPERVISOR-C :1965 A ge:59 Y S ex:Male Date:10/06/2024 Address:[address] [facility] Subjective: * Chief Complaints: * 1 . 4 week F/U. * Medical History: Objective: * Vitals: Assessment: Plan: * Treatment: * * Electronic signature of Suyapa Fowler [id number] on 09/11/2025 at 11:35 AM CDT Sign off status: Pending * Provider: Jessica Fowler, MSN, PERCUSSION INSTRUMENT TUNER, RECLAMATION SUPERVISOR-C Date: 12/06/2023 Generated for Printi ng/Faxing/eTransmitting on: 11:35 AM CDT
--- OUTSIDE RECORDS SUMMARY | 2025-09-11 11:35 | XMS_ITS | Clinical Summary ---
Author Organization [facility] Address [address] [place] [address] Care Team Providers Care Saloonkeeper Name Role Phone Alan Schmitz MD Primary Care Provider [phone] Source Comments [facility],non-owned Affiliates and Associated Physician Practices is amultiple site organization consisting of ambulatory clinics and hospital sitesin [place], [place], [place] and [place]. This disclosure is being madepursuant to the Care Everywhere program and may not contain all information available regarding this patient. Last updated 18.[facility] Allergies No known active allergies Medications * This document contains information received from the source organization and may not represent a complete record from that organization. * Be aware that medications may not be up to date on this document. Alwaysverify current medications with the patient. lamoTRIgine (LAMICTAL) 25 MG tabletIndicatio ns:Depression Take 150 mg by mouth once daily Reasons: Depression Active prazosin (MINIPRESS) 1 MG capsuleIndicati ons:Hypertensio n Take 1 mg by mouth nightly as needed. Indications: High Blood Pressure Active traZODone (DESYREL) 100 MG tablet Take 100 mg by mouth at bedtime. Active clonazePAM (KLONOPIN) 1 MG tabletIndicatio ns:Bipolar Mood Disorder,Restle ss Leg Syndrome Take 1 mg by mouth 3 times daily. Indications: Manic-Depressio n, Restless Leg Syndrome Active zolpidem (AMBIEN) 10 MG tabletIndicatio ns:Insomnia Take 10 mg by mouth nightly as needed for Insomnia. Indications: Trouble Sleeping Active lisinopril (PRINIVIL; ZESTRIL) 40 MG tabletIndicatio ns:Hypertension Take 40 mg by mouth once daily. Indications: High Blood Pressure Active ROPINirole (REQUIP) 2 MG tabletIndicatio ns:Restless Leg Syndrome Take 2 mg by mouth once daily. Indications: Restless Leg Syndrome Active FLUoxetine (PROZAC) 40 MG capsuleIndicati ons:Depression Take 2 Caps by mouth once daily. Indications: Depression 40 Cap 11 5 Active risperiDONE (RISPERDAL) 3 MG tabletIndicatio ns:Psychosis Take 3 mg by mouth once daily Reasons: Psychosis Active Active Problems Problem Noted Date Diagnosed Date Bipolar I disorder 03/24/2015 Overview (02/05/2016): 2015 IMO Updt HTN (hypertension) 03/24/2015 Family History Medical History Relation Name Comments [place] Brother Cancer Father Relation Name Status Comments Brother Father Social History Tobacco Use Types Packs/Day Years Used Date Smoking Tobacco: Every Day Cigars Smokeless Tobacco: Never Tobacco Cessation:Ready to Q uit: No; Counseling Given: Yes Comments:5 cigars per day Alcohol Use Standard Drinks/Week Comments No 0 (1 standard drink = 0.6 oz pur e alcohol) Sex and Gender Information Value Date Recorded Sex Assigned at Not on file Legal Sex Male 4:00 PM CDT Gender Identity Not on file Sexual Orientation Not on file Last Filed Vital Signs Vital Sign Reading Time Taken Comments Blood Pressure 111/81 03/20/2016 7:16 AM CDT Pulse 79 03/20/2016 7:16 AM CDT Temperature 37 C (98.6 F) 03/20/2016 6:40 AM CDT Respiratory Rate 22 03/20/2016 7:16 AM CDT Oxygen Saturation 90% 03/20/2016 7:16 AM CDT Inhaled Oxygen Concentration - - Weight 83.9 kg (185 lb) 03/20/2016 5:28 AM CDT Height 175.3 cm (5' 9) 03/20/2016 5:28 AM CDT Body Mass Index 27.32 03/20/2016 5:28 AM CDT Plan of Treatment Health Maintenance Due Date Last Done Comments GEORGINA (AGES 45-75) - COL ON CA SCREENING 1965 COLON MONITORING 1965 COLONOSCOPY - COLON CA SCREENING 1964 CT COLONOGRAPHY - COLON CA SCREENING 1965 Colorectal Cancer Screening 1965 FIT - COLON CA SCREENING 1965 FLEX SIG - COLON CA SCREENING 1965 LIPID TESTING 1965 HIV SCREENING 02/03/1979 HEPATITIS C SCREENING 01/30/1982 DTAP/TDAP/TD VACCINES (1 - Tdap) 02/03/1983 PNEUMOCOCCAL VACCINE 50+ (1 of 2 - PCV) 02/03/1983 ZOSTER VACCINE (1 of 2) 02/03/2014 COVID-19 VACCINE (1 - 2023-2 5 season) 2025 INFLUENZA VACCINE (#1) 2025 Respiratory Syncytial Virus (RSV) Vaccine Pt: or over 60 yrs (1 - 1-dose 75+ series) 02/03/2039 HEPATITIS B VACCINE Aged Out No longe r eligible based on patient's age to complete this topic HIB VACCINE Aged Out No longer eligi ble based on patient's age to complete this topic HPV VACCINE Aged Out No longer eligi ble based on patient's age to complete this topic MENINGOCOCCAL (Group B) VACC INE SHARED DECISION-MAKING Aged Out No longer eligibl e based on patient's age to complete this topic MENINGOCOCCAL GROUPS A/C/Y/W VACCINE Aged Out No longer eligible b ased on patient's age to complete this topic Insurance [address] [place] [address] [facility] MEDICARE MEDICARE [facility] Advance Directives * Full Code (Latest Code Status on File) Date Activated Date Inactivated Comments 03/24/2015 12:05 AM 03/25/2015 8:51 AM Care Teams Saloonkeeper Relationship Specialty Start Date End Date Alan Schmitz MD [address] [place] [address] PCP - General Family Medicine 03/23/15
--- OUTSIDE RECORDS SUMMARY | 2025-09-11 11:35 | XMS_ITS | Patient Health Record ---
Author Organization [facility] Address [address] [place] [address] Care Team Providers Care Insurance Sales Supervisor Name Role Phone Ofelia Fowler Primary Care Provider [phone] Allergies No Known Allergies Reason For Referral No Information Medications Medication SIG (Take, Route, Frequency, Duration) Notes Start Date End Date Status lamoTRIgine 150 MG 1 tablet Orally Twice a day; Duration: 5 days Active PROzac 40 MG 2 capsule Orally every morning; Duration: 5 days Active SEROquel 400 MG 1 tablet at bedtime (300 mg + 400 mg = 700 mg/day) Orally Once a day; Duration: 5 days Active Qvar shortness of breath Active Wellbutrin XL 300 MG 1 tablet Orally every morning; Duration: 5 days Active Prazosin HCl 5 MG three at bedtime Orally at night; Duration: 5 days Active SEROquel 300 MG 1 tablet at bedtime (300 mg + 400 mg = 700 mg/day) Orally at bedtime; Duration: 5 days Active diazePAM 5 mg TAKE 1 TABLET BY MOUTH THREE TIMES A DAY IF NEEDED; Duration: 30 days 08/10/2025 Active Wellbutrin XL 300 MG 1 tablet Orally every morning; Duration: 30 days Active Meloxicam 15 MG 1 tablet Orally Once a day Active Bystolic 2.5 MG 1 tablet Orally Once a day Active Atorvastatin Calcium 40 MG 1 tablet Orally Once a day Active diazePAM 5 mg TAKE 1 TABLET BY MOUTH THREE TIMES A DAY IF NEEDED; Duration: 5 days 08/05/2025 Active FLUoxetine HCl 20 MG 1 capsule Orally Once a day; Duration: 30 days (40mg + 20mg = 60mg daily) Active Omeprazole 40 MG 1 capsule 30 minutes before morning meal Orally Once a day Active Lisinopril 40 MG 1 tablet Orally Once a day Active Tamsulosin HCl 0.4 MG 1 capsule Orally Once a day; Duration: 30 day(s) Active rOPINIRole HCl 4 MG 1 tablet 1 to 3 hours before bedtime Orally Once a day; Duration: 30 day(s) Active tiZANidine HCl 2 MG 1 tablet as needed Orally Three times a day Active Albuterol Sulfate shortness of breath Active SEROquel 300 MG 1 tablet at bedtime (300 mg + 400 mg = 700 mg/day) Orally at bedtime; Duration: 30 days Active lamoTRIgine 150 MG 1 tablet Orally Twice a day; Duration: 30 days Active Prazosin HCl 5 MG three at bedtime Orally at night; Duration: 30 days Active PROzac 40 MG 2 capsule Orally every morning; Duration: 30 days Active SEROquel 400 MG 1 tablet at bedtime (300 mg + 400 mg = 700 mg/day) Orally Once a day; Duration: 30 days Active Immunizations Vaccine Route Administration Date Status Comme nts FLU VAC NO PRSV 4VAL 6 mo+ IM Intramuscular 09/08/2024 Administered Pt garcía well. Social History Tobacco Use: Social History Observation Description Date Details (start date - stop date) Never Smoker NA - NA Sex Assigned At : Social History Observation Description Sex Assigned At Male Dont use, Tobacco Use/Smoking Question Answer Notes Are you a former smoker How long has it been since you last smoked? 1-5 years Dont use, Tobacco use other than smoking: Question Answer Notes Are you an other tobacco user? Yes s topped smoking cigars 3 days ago. Was preivously smoking 6 per day PRAPARE Question Answer Notes What is your current housing situation? I have h ousing Are you worried about losing your housing? No What is the highest level of school that you have finished? Less than a high school degree What is your current work situation? 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 Check all that apply I do not have problems meeting my needs Has lack of transportation k ept you from medical appointments, meetings, work or from getting things needed for daily living? No How often do you see or talk to people that you care about and feel close to? (For example: talking to friends on the phone, visiting friends or family, going to restorationist or club meetings) More than 5 times a week How stressed are you? Stress is when someone feels tense, nervous, anxious, or can\t sleep at night because their mind is troubled Very much In the past year have you sp ent more than 2 nights in a row in a nursing home, alf, alf center, or juvenile correctional facility? No Are you a refugee? No What country are you from? [place] Do you feel physically and e motionally safe where you currently live? No In the past year, have you b een afraid of your partner or ex-partner? No PRAPARE Score: 8 Tobacco Control (Standard) Question Answer Notes Tobacco use: Nonsmoker Section Notes: [id number] 03/29/2023 03/29/2023 diazePAM 90.0 30 5 MG Veronica Leung [facility] - [id number] [place], [place] NA 0 [place] 1 [id number] 03/02/2023 03/02/2023 diazePAM 90.0 30 5 MG Veronica Leung [facility] - [id number] [place] 1 [id number] 01/16/2023 10/26/2022 diazePAM 90.0 30 5 MG Yolie Hodge L, Msn, [facility] - [id number] [place] 1 [id number] 12/21/2022 10/26/2022 diazePAM 90.0 30 5 MG [place] [id number] 03/29/2023 03/29/2023 diazePAM 90.0 30 5 MG Veronica Leung [facility] - [id number] [place] 1 [id number] 03/02/2023 03/02/2023 diazePAM 90.0 30 5 MG Veronica Leung [facility] - [id number] [place] 1 [id number] 01/16/2023 10/26/2022 diazePAM 90.0 30 5 MG Yolie Hodge L, Msn, [employer]- - [id number] [place], [place] NA 2 [place] 1 [id number] 12/21/2022 10/26/2022 diazePAM 90.0 30 5 MG [place]ie [place], Msn [id number] 03/29/2023 03/29/2023 diazePAM 90.0 30 5 MG NA Veronica Avendano, [facility] - [id number] [place], [place] 1 [id number] 03/02/2023 03/02/2023 diazePAM 90.0 30 5 MG NA Veronica Avendano, [facility] - [id number] [place], [place] 0 [place] 1 [id number] 01/16/2023 10/26/2022 diazePAM 90.0 30 5 MG Yolie Hodge L, Msn, [facility] - [id number] [place], [place] 2 [place] 1 [id number] 12/21/2022 10/26/2022 diazePAM 90.0 30 5 MG [place]n [id number] 05/22/2023 05/22/2023 diazePAM 90.0 30 5 MG Veronica Leung, [id number] 03/29/2023 03/29/2023 diazePAM 90.0 30 5 MG NA Veronica Avendano, [facility] - [id number] [place], [place] 1 [id number] 03/02/2023 03/02/2023 diazePAM 90.0 30 5 MG Veronica Leung, [facility] - [id number] [place], [place] 1 [id number] 01/16/2023 10/26/2022 diazePAM 90.0 30 5 MG Yolie Hodge L, Msn, [facility] - [id number] [place] 1 [id number] 12/21/2022 10/26/2022 diazePAM 90.0 30 5 MG [place], [place]n [id number] 05/22/2023 05/22/2023 diazePAM 90.0 30 5 MG NA RomanaBalbirae [place]ka, [id number] 03/29/2023 03/29/2023 diazePAM 90.0 30 5 MG NA RomanaBalbirae Alka, [employer]- - [id number] [place], [place] 1 [id number] 03/02/2023 03/02/2023 diazePAM 90.0 30 5 MG NA Veronica Avendano, [facility] - [id number] [place], [place] 0 [place] 1 [id number] 01/16/2023 10/26/2022 diazePAM 90.0 30 5 MG NA Yolie Nelson L, Msn, [facility] - [id number] [place], [place] NA 2 [place] 1 [id number] 12/21/2022 10/26/2022 diazePAM 90.0 30 5 MG NA [place]olie [place], Msn [id number] 05/22/2023 05/22/2023 diazePAM 90.0 30 5 MG NA Romana Veronica M, [id number] 03/29/2023 03/29/2023 diazePAM 90.0 30 5 MG NA Romana Veronica M, [facility] - [id number] [place], [place] 0 [place] 1 [id number] 03/02/2023 03/02/2023 diazePAM 90.0 30 5 MG NA Veronica Avendano, [facility]- - [id number] [place], [place] 0 [place] 1 [id number] 01/16/2023 10/26/2022 diazePAM 90.0 30 5 MG NA Yolie Nelson L, Msn, [facility] - [id number] [place], [place] NA 2 [place] 1 [id number] 12/21/2022 10/26/2022 diazePAM 90.0 30 5 MG [place]n [id number] 05/22/2023 05/22/2023 diazePAM 90.0 30 5 MG NA Veronica Avendano, [id number] 03/29/2023 03/29/2023 diazePAM 90.0 30 5 MG NA Veronica Avendano, [employer] - [id number] [place], [place] NA 0 [place] 1 [id number] 03/02/2023 03/02/2023 diazePAM 90.0 30 5 MG NA Veronica Avendano, [employer]- - [id number] [place], [place] 0 [place] 1 [id number] 01/16/2023 10/26/2022 diazePAM 90.0 30 5 MG NA Yolie Nelson L, Msn, [facility] - [id number] [place] 2 [place] 1 [id number] 12/21/2022 10/26/2022 diazePAM 90.0 30 5 MG Yolie [place] L, Msn [id number] 05/22/2023 05/22/2023 diazePAM 90.0 30 5 MG Veronica Leung, [id number] 03/29/2023 03/29/2023 diazePAM 90.0 30 5 MG Veronica Leung, [facility] - [id number] [place], [place] 1 [id number] 03/02/2023 03/02/2023 diazePAM 90.0 30 5 MG Veronica Leung, [facility] - [id number] [place], [place] 1 [id number] 01/16/2023 10/26/2022 diazePAM 90.0 30 5 MG Yolie Hodge L, Msn, [facility] - [id number] [place], [place] 2 [place] 1 [id number] 12/21/2022 10/26/2022 diazePAM 90.0 30 5 MG Yolie Hodge L, Msn [id number] 05/22/2023 05/22/2023 diazePAM 90.0 30 5 MG Veronica Leung, [id number] 03/29/2023 03/29/2023 diazePAM 90.0 30 5 MG Veronica Leung, [facility] - [id number] [place], [place] 0 [place] 1 [id number] 03/02/2023 03/02/2023 diazePAM 90.0 30 5 MG NA Veronica Avendano, [facility]- - [id number] [place], [place] 0 [place] 1 [id number] 01/16/2023 10/26/2022 diazePAM 90.0 30 5 MG NA Yolie Nelson L, Msn, [employer] - [id number] [place], [place] NA 2 [place] 1 [id number] 12/21/2022 10/26/2022 diazePAM 90.0 30 5 MG [place]n [id number] 05/22/2023 05/22/2023 diazePAM 90.0 30 5 MG NA Veronica Avendano, [id number] 03/29/2023 03/29/2023 diazePAM 90.0 30 5 MG NA Veronica Avendano, [facility]- - [id number] [place], [place] 1 [id number] 03/02/2023 03/02/2023 diazePAM 90.0 30 5 MG NA Veronica Avendano, [facility] - [id number] [place], [place] 0 [place] 1 [id number] 01/16/2023 10/26/2022 diazePAM 90.0 30 5 MG NA Yolie Nelson L, Msn, [employer]bc - [id number] [place], [place] NA 2 [place] 1 [id number] 12/21/2022 10/26/2022 diazePAM 90.0 30 5 MG NA oYlie Nelson L, Msn [id number] 05/22/2023 05/22/2023 diazePAM 90.0 30 5 MG NA Veronica Avendano, [id number] 03/29/2023 03/29/2023 diazePAM 90.0 30 5 MG NA Veronica Avendano, [facility] - [id number] [place], [place] 0 [place] 1 [id number] 03/02/2023 03/02/2023 diazePAM 90.0 30 5 MG NA Veronica Avendano, [facility] - [id number] [place], [place] 1 [id number] 01/16/2023 10/26/2022 diazePAM 90.0 30 5 MG NA Yolie Nelson L, Msn, [facility] - [id number] [place], [place] NA 2 [place] 1 [id number] 12/21/2022 10/26/2022 diazePAM 90.0 30 5 MG NA Yolie [place] L, Msn [id number] 05/22/2023 05/22/2023 diazePAM 90.0 30 5 MG NA Veronica Avendano, [id number] 08/01/2021 06/22/2021 diazePAM 90 30 5MG NA Yolie Nelson L, Msn, [facility] [id number] [place] 1 [id number] 07/07/2021 06/22/2021 diazePAM 90 30 5MG NA Yolie Nelson L, Msn, [facility] - [id number] [place], [place] 1 [id number] 06/15/2021 06/15/2021 Acetaminophen-codeine Phosphate 30 7 300 MG-30 MG 19.29 [facility] - [id number] [place] 1 [id number] 06/09/2021 05/25/2021 diazePAM 90 30 5MG NA Yolie Nelson L, Msn, [facility] - [id number] [place], [place] 1 [id number] 05/09/2021 04/28/2021 diazePAM 90 30 5MG NA Yolie Nelson L, Msn, [facility] - [id number] [place], [place] 1 [id number] 04/13/2021 04/13/2021 diazePAM 90 30 5MG NA Yolie Nelson L, Msn, [facility] - [id number] [place], [place] 1 [id number] 03/16/2021 03/16/2021 diazePAM 90 30 5MG [id number] 03/29/2023 03/29/2023 diazePAM 90.0 30 5 MG NA Veronica Avendano, [facility] - [id number] [facility], [place], [place] NA 0 [place] 1 [id number] 03/02/2023 03/02/2023 diazePAM 90.0 30 5 MG NA Veronica Avendano, [employer] - [id number] [facility] [place], [place] 0 [place] 1 [id number] 01/16/2023 10/26/2022 diazePAM 90.0 30 5 MG NA Yolie Nelson L, Msn, [facility] - [id number] [facility] [place], [place] NA 2 [place] 1 [id number] 12/21/2022 10/26/2022 diazePAM 90.0 30 5 MG NA [place]olie [place] L[place] Msn [id number] 05/22/2023 05/22/2023 diazePAM 90.0 30 5 MG NA Romana, Veronica Alka, Problems Problem Type SNOMED Code ICD Code Onset Dates Problem Status W/U Status Risk Notes Problem Anxiety disorder (434884746) Anxiety disorder, unspecified (F41.9) Active confirmed Problem Posttraumatic stress disorder (05421410) PTSD (post-traumatic stress disorder) (F43.10) Active confirmed Problem Chronic posttraumatic stress disorder (667389535) Chronic posttraumatic stress disorder (F43.12) Active confirmed Problem Generalized anxiety disorder (96553384) DORINDA (generalized anxiety disorder) (F41.1) Active confirmed Problem Cannabis abuse (67072746) Cannabis abuse (F12.10) 10/26/20 22 Active confirmed Problem Overweight (194172859) Over weight (E66.3) Active confirmed Problem Bipolar disorder (38861052) Bipolar depression (F31.9) Active confirmed Vital Signs Heart Rate 104 /min 08/10/2025 Temperature 97.6 degrees Fahrenheit 08/10/2025 Respiratory Rate 16 /min 08/10/2025 Oximetry 97 % 08/10/2025 Blood pressure diastolic 82 mm Hg 08/10/2025 Height 69 inches in 08/10/2025 Blood pressure systolic 128 mm Hg 08/10/2025 Weight 177.4 lbs lbs 08/10/2025 BMI 26.19 kg/m2 08/10/2025 Encounters Encounter Location Date Provider Diagnosis [address] [place] [address] 11/03/2024 Ofelia Fowler PTSD (post-traumatic stress disorder) F43.10 ; Bipolar depression F31.9 ; DORINDA (generalized anxiety disorder) F41.1 ; Cannabis use disorder F12.90 and Nutritional counseling Z71.[address] [address] 12/08/2024 Ofelia Malcolm Nutritional counseling Z71.3 ; PTSD (post-traumatic stress disorder) F43.10 ; DORINDA (generalized anxiety disorder) F41.1 ; Bipolar depression F31.9 and Cannabis use disorder F12.[address] [address] 01/26/2025 Ofeliachino HunterMalcolm Nutritional counseling Z71.3 ; PTSD (post-traumatic stress disorder) F43.10 ; DORINDA (generalized anxiety disorder) F41.1 ; Bipolar depression F31.9 and Cannabis use disorder F12.[address] [address] 03/23/2025 Ofeliachino HunterMalcolm Nutritional counseling Z71.3 ; PTSD (post-traumatic stress disorder) F43.10 ; DORINDA (generalized anxiety disorder) F41.1 ; Bipolar depression F31.9 and Cannabis use disorder F12.[address] [address] 06/01/2025 Ofelia Malcolm Nutritional counseling Z71.3 ; PTSD (post-traumatic stress disorder) F43.10 ; DORINDA (generalized anxiety disorder) F41.1 ; Bipolar depression F31.9 and Cannabis use disorder F12.[address] [address] 08/10/2025 Ofelia Fowler Over weight E66.3 ; Nutritional counseling Z71.3 ; PTSD (post-traumatic stress disorder) F43.10 ; DORINDA (generalized anxiety disorder) F41.1 ; Bipolar depression F31.9 and Cannabis use disorder F12.[address] [address] 09/29/2024 Ofelia Fowler [facility] [address] [place] [address] 11/27/2024 Ofelia Fowler Assessments Encounter Date Diagnosis (ICD Code) Assessment Notes Treatment Notes Treatment Clinical Notes Section Notes 11/03/2024 PTSD (post-traumatic stress disorder) (ICD-10 - F43.10) Pt reports that night terrors are under control at this time. 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 Pt has been on this dose for jail 03/23/2025 PTSD (post-traumatic stress disorder) (ICD-10 - F43.10) Pt reports that night terrors are under control at this time. 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 Pt has been on this dose for jail 11/03/2024 Bipolar depression (ICD-10 - F31.9) 11/03/2024 DORINDA (generalized anxiety disorder) (ICD-10 - F41.1) PDMP checked without concerns. Client discussed increase in medication. Increasing prozac for depression and anxiety. Encouraged more socialization. 11/03/2024 Cannabis use disorder (ICD-10 - F12.90) Discussed with patient that taking or using herbs, such as marijuana, and/or vitamins and supplements may interfere with or alter the way prescription medications work in the body or cause adverse reactions. Patient voiced understanding. 12/08/2024 DORINDA (generalized anxiety disorder) (ICD-10 - F41.1) PDMP checked without concerns. Client discussed increase in medication. Increased prozac for depression and anxiety. Encouraged more socialization. 01/26/2025 DORINDA (generalized anxiety disorder) (ICD-10 - F41.1) PDMP checked without concerns. Client discussed increase in medication. Increased prozac for depression and anxiety. Encouraged more socialization. 03/23/2025 DORINDA (generalized anxiety disorder) (ICD-10 - F41.1) PDMP checked without concerns. Increased prozac for low energy, depression and anxiety. Encouraged more socialization. 06/01/2025 DORINDA (generalized anxiety disorder) (ICD-10 - F41.1) PDMP checked without concerns. 08/10/2025 PTSD (post-traumatic stress disorder) (ICD-10 - F43.10) Pt reports that night terrors are under control at this time. 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 06/01/2025 Bipolar depression (ICD-10 - F31.9) 03/23/2025 Bipolar depression (ICD-10 - F31.9) 01/26/2025 Bipolar depression (ICD-10 - F31.9) 12/08/2024 Bipolar depression (ICD-10 - F31.9) 11/03/2024 Nutritional counseling (ICD-10 - Z71.3) 12/08/2024 Cannabis use disorder (ICD-10 - F12.90) Discussed with patient that taking or using herbs, such as marijuana, and/or vitamins and supplements may interfere with or alter the way prescription medications work in the body or cause adverse reactions. Patient voiced understanding. 01/26/2025 Cannabis use disorder (ICD-10 - F12.90) Discussed with patient that taking or using herbs, such as marijuana, and/or vitamins and supplements may interfere with or alter the way prescription medications work in the body or cause adverse reactions. Patient voiced understanding. 03/23/2025 Cannabis use disorder (ICD-10 - F12.90) Discussed with patient that taking or using herbs, such as marijuana, and/or vitamins and supplements may interfere with or alter the way prescription medications work in the body or cause adverse reactions. Patient voiced understanding. 06/01/2025 Cannabis use disorder (ICD-10 - F12.90) Discussed with patient that taking or using herbs, such as marijuana, and/or vitamins and supplements may interfere with or alter the way prescription medications work in the body or cause adverse reactions. Patient voiced understanding. 08/10/2025 Bipolar depression (ICD-10 - F31.9) 08/10/2025 Cannabis use disorder (ICD-10 - F12.90) Discussed with patient that taking or using herbs, such as marijuana, and/or vitamins and supplements may interfere with or alter the way prescription medications work in the body or cause adverse reactions. Patient voiced understanding. 11/03/2024 Other Reasons, potential benefits, potential risks, interactions and side effects of all medications were discussed. The Patient/Guardian asked appropriate questions, appeared to understand the answers, and decided to accept the treatment and continue being followed. Alternatives and expected course without treatment were reviewed. The Patient/Guardian is aware of the need to contact the office or return for an earlier appointment if any problems or concerns arise. May also contact the 24-hour crisis hotline ([facility]), refer to the closest emergency room or call 911 if new symptoms arise of existing symptoms worsen. The Patient/Guardian is aware that this would apply to symptoms like: suicidal ideation, homicidal ideation, high risk behaviors, manic symptoms, psychotic symptoms, physical symptoms, or any other symptoms that may be dangerous to self or others. Greater than 50% of time spent on coordination and counseling where psychopharmacology as well as psychotherapeutic interventions were discussed along with review of treatments in the past. Education provided concerning need for adequate hydration. Patient/Guardian verbalized understanding of education, treatment plan and follow up. 12/08/2024 Other Reasons, potential benefits, potential risks, interactions and side effects of all medications were discussed. The Patient/Guardian asked appropriate questions, appeared to understand the answers, and decided to accept the treatment and continue being followed. Alternatives and expected course without treatment were reviewed. Client refuses crisis intervention. States protective factors. Reports feeling safe at this time. Denies plan/intent with his SI. The Patient/Guardian is aware of the need to contact the office or return for an earlier appointment if any problems or concerns arise. May also contact the 24-hour crisis hotline ([facility]), refer to the closest emergency room or call 911 if new symptoms arise of existing symptoms worsen. The Patient/Guardian is aware that this would apply to symptoms like: suicidal ideation, homicidal ideation, high risk behaviors, manic symptoms, psychotic symptoms, physical symptoms, or any other symptoms that may be dangerous to self or others. Greater than 50% of time spent on coordination and counseling where psychopharmacology as well as psychotherapeutic interventions were discussed along with review of treatments in the past. Education provided concerning need for adequate hydration. Patient/Guardian verbalized understanding of education, treatment plan and follow up. 01/26/2025 Other Reasons, potential benefits, potential risks, interactions and side effects of all medications were discussed. The Patient/Guardian asked appropriate questions, appeared to understand the answers, and decided to accept the treatment and continue being followed. Alternatives and expected course without treatment were reviewed. The Patient/Guardian is aware of the need to contact the office or return for an earlier appointment if any problems or concerns arise. May also contact the 24-hour crisis hotline ([facility]), refer to the closest emergency room or call 911 if new symptoms arise of existing symptoms worsen. The Patient/Guardian is aware that this would apply to symptoms like: suicidal ideation, homicidal ideation, high risk behaviors, manic symptoms, psychotic symptoms, physical symptoms, or any other symptoms that may be dangerous to self or others. Greater than 50% of time spent on coordination and counseling where psychopharmacology as well as psychotherapeutic interventions were discussed along with review of treatments in the past. Education provided concerning need for adequate hydration. Patient/Guardian verbalized understanding of education, treatment plan and follow up. 03/23/2025 Other Reasons, potential benefits, potential risks, interactions and side effects of all medications were discussed. The Patient/Guardian asked appropriate questions, appeared to understand the answers, and decided to accept the treatment and continue being followed. Alternatives and expected course without treatment were reviewed. The Patient/Guardian is aware of the need to contact the office or return for an earlier appointment if any problems or concerns arise. May also contact the 24-hour crisis [facility] ([facility]), refer to the closest emergency room or call 911 if new symptoms arise of existing symptoms worsen. The Patient/Guardian is aware that this would apply to symptoms like: suicidal ideation, homicidal ideation, high risk behaviors, manic symptoms, psychotic symptoms, physical symptoms, or any other symptoms that may be dangerous to self or others. Greater than 50% of time spent on coordination and counseling where psychopharmacology as well as psychotherapeutic interventions were discussed along with review of treatments in the past. Education provided concerning need for adequate hydration. Patient/Guardian verbalized understanding of education, treatment plan and follow up. 06/01/2025 Other Reasons, potential benefits, potential risks, interactions and side effects of all medications were discussed. The Patient/Guardian asked appropriate questions, appeared to understand the answers, and decided to accept the treatment and continue being followed. Alternatives and expected course without treatment were reviewed. The Patient/Guardian is aware of the need to contact the office or return for an earlier appointment if any problems or concerns arise. May also contact the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
--- OUTSIDE RECORDS SUMMARY | 2025-09-11 11:35 | XMS_ITS | Encounter Summary ---
Author Organization [facility] Health Address [address] [place] [address] Care Team Providers Care Final Block Press Operator Name Role Phone Alan Schmitz MD Primary Care Provider [phone] Encounter Details Date Type Department Care Team (Late st Contact Info) Description 10/20/2020 Lab Requisition [facility] Care DermPath Lab [address] [place] [id number] Alan Schmitz MD [address] [place] [address] Social History Tobacco Use Types Packs/Day Years Used Date Smoking Tobacco: Every Day Cigars Smokeless Tobacco: Never Comments:5 cigars per day Alcohol Use Standard Drinks/Week Comments No 0 (1 standard drink = 0.6 oz pur e alcohol) Sex and Gender Information Value Date Recorded Sex Assigned at Not on file Legal Sex Male 4:00 PM CDT Gender Identity Not on file Sexual Orientation Not on file documented as of this encounter Functional Status * Is person deaf or have serious hearing difficulty? Answer Date of Assessment Author No 03/23/2015 11:55 PM Marco Evans RN * Is person blind or have serious difficulty seeing? Answer Date of Assessment Author No 03/23/2015 11:55 PM DAET Marco Elizabeth RN * Does person have serious difficulty walking/climbing stairs? Answer Date of Assessment Author No 03/23/2015 11:55 PM Marco Evans RN * Does person have difficulty dressing/bathing? Answer Date of Assessment Author No 03/23/2015 11:55 PM Marco Evans RN * Does person have difficulty doing errands alone? Answer Date of Assessment Author No 03/23/2015 11:55 PM Marco Evans RN documented as of this encounter Mental Status * Does person have difficulty concentrating/remembering/making decisions? Answer Entry Date Author No 03/23/2015 11:55 PM Marco Evans RN documented in this encounter Plan of Treatment Not on file documented as of this encounter Procedures Procedure Name Priority Date/Time Associated Diagnosis Comments DERMATOPATHOLOGY Routine 10/20/2020 12:0 0 AM LEATHER GOODS I ASSEMBLER documented in this encounter Results * DERMATOPATHOLOGY (10/20/2020 12:00 AM LEATHER GOODS I ASSEMBLER) Case Report Dermatopathology Report Case: [id number] Authorizing Provider: Alan Schmitz MD Collected: 10/20/2020 12:00 AM Ordering Location: [facility] DermPath Lab Received: 10/20/2020 12:14 PM Pathologist: Alka Reed MD Specimen: Skin, left upper back 0 3:04 PM [facility] DERMATOPATHOLOGY LABORATORY Final Diagnosis Specimen A. SKIN, left upper back: BENIGN VERRUCOUS KERATOSIS, INFLAMED (L82.1) PRESENT AT MARGIN 0 3:04 PM [facility] DERMATOPATHOLOGY LABORATORY at 1504 LEATHER GOODS I ASSEMBLER Clinical History Changing lesion. Check margins. 0 3:04 PM [facility] DERMATOPATHOLOGY LABORATORY Gross Description Specimen A: Received is one formalin filled container labeled with the patient's name and designated left upper back. The specimen consists of a shave biopsy (2 pieces) measuring [id number] & [id number]. The margin is inked green. Jar 0. 0 3:04 PM [facility] DERMATOPATHOLOGY LABORATORY Microscopic Description Specimen A. SKIN, left upper back: Sections show hyperkeratosis, papillomatosis, hypergranulosis, and acanthosis. Inflammatory cells are present within the dermis. These histological findings can be seen in a verruca vulgaris or a seborrheic keratosis. This lesion is present at the margin of the specimen. 0 3:04 PM [facility] DERMATOPATHOLOGY LABORATORY Disclaimer An external and internal positive and negative controls are appropriate for the histochemical, immunohistochemical and immunofluorescence stain(s) in this case (if any), except where stated explicitly. The performance characteristics of the stain(s) cited in this report were developed and its performance characteristic determined by the Dermatopathology Laboratory at [facility], directed by Dr. Rosalia Reed. These tests need not be, and therefore are not, approved by the [place] Food and Drug Administration. The tests are used for clinical purposes. Billing Codes Specimen Charges Stain Charges 07320 1 0 3:04 PM LEATHER GOODS I ASSEMBLER DERMATOPATHOLOGY LABORATORY Embedded Images 0 3:04 PM [facility] DERMATOPATHOLOGY LABORATORY Pathology/Cytolog y TISSUE SPECIMEN FROM SKIN / Unknown 10/20/2020 10/20/2020 12:14 PM LEATHER GOODS I ASSEMBLER Alan Schmitz MD LAB - PATHOLOGY/CYTOLOGY [facility] Final Result DERMATOPATHOLOGY LABORATORY [facility] - Department of Dermatology [facility] Medicine [address] [place] [address], [address] [phone] documented in this encounter Visit Diagnoses Not on filedocumented in this encounter Care Teams Final Block Press Operator Relationship Specialty Start Date End Date Alan Schmitz MD [address] [place] [address] PCP - General Family Medicine 03/23/15 documented as of this encounter
--- OUTSIDE RECORDS SUMMARY | 2025-09-11 11:35 | XMS_ITS | Clinical Summary ---
Author Organization [facility] Address [address] [place] [address] Phone Care Team Providers Care Dental Assistant Instructor Name Role Phone Alan Schmitz MD Primary Care Provider [phone] Angelica GARCIA MD, Ana Unavailable [phone] Allergies No known active allergies Medications buPROPion (WELLBUTRIN) 300 MG TABLET SR 24 HR XL tablet 09/07/2023 Active clonazePAM (KlonoPIN) 1 MG Tablet Take 1 mg by mouth. Active diazePAM (VALIUM) 5 MG Tablet 09/06/2023 Active lamoTRIgine (LAMICTAL) 150 MG Tablet 09/07/2023 Active lisinopril (PRINIVIL, ZESTRIL) 40 MG Tablet Take 40 mg by mouth. Active ROPINIROLE HYDROCHLORIDE 4 MG Tablet 09/07/2023 Active traZODone (DESYREL) 100 MG Tablet Take 100 mg by mouth. Active zolpidem (AMBIEN) 10 MG Tablet Take 10 mg by mouth. Active QUEtiapine Fumarate 300 MG Tablet 09/07/2023 Active prazosin (MINIPRESS) 5 MG Capsule 09/07/2023 Active meloxicam (MOBIC) 15 MG Tablet Take 15 mg by mouth daily. Active Family History Medical History Relation Name Comments Hypertension Father Other-comment Father Hypertension Mother Relation Name Status Comments Father Mother Social History Tobacco Use Types Packs/Day Years Used Date Smoking Tobacco: Former Cigarettes 0 Q uit: 11/12/2021 Smokeless Tobacco: Never Tobacco Cessation:Counseling Given: No Alcohol Use Standard Drinks/Week Comments Never 0 (1 standard drink = 0.6 oz pur e alcohol) Sex and Gender Information Value Date Recorded Sex Assigned at Not on file Legal Sex Male 11:25 AM CDT Gender Identity Not on file Sexual Orientation Not on file Last Filed Vital Signs Vital Sign Reading Time Taken Comments Blood Pressure 130/80 09/17/2023 9:04 AM VACUUM EVAPORATION OPERATOR Pulse 80 09/17/2023 9:04 AM VACUUM EVAPORATION OPERATOR Temperature 36.2 C (97.1 F) 09/17/2023 9:04 AM VACUUM EVAPORATION OPERATOR Respiratory Rate 19 09/17/2023 9:04 AM VACUUM EVAPORATION OPERATOR Oxygen Saturation 96% 09/17/2023 9:04 AM VACUUM EVAPORATION OPERATOR Inhaled Oxygen Concentration - - Weight 76.2 kg (168 lb) 09/17/2023 9:04 AM VACUUM EVAPORATION OPERATOR Height 175.3 cm (5' 9) 09/17/2023 9:04 AM VACUUM EVAPORATION OPERATOR Body Mass Index 24.81 09/17/2023 9:04 AM VACUUM EVAPORATION OPERATOR Plan of Treatment Health Maintenance Due Date Last Done Comments Hepatitis C Virus (HCV) Screening 1965 TdaP Immunization 1965 Cologuard 02/03/2009 Colonoscopy 02/03/2009 Colorectal Cancer Screening 02/03/2009 Immunochemical Fecal Occult Blood 02/03/2009 Pneumococcal Immunization (50+ years) (1 of 1 - PCV) 02/03/2014 Hepatitis B Immunization (1 of 3 - Risk 3-dose series) 2024 Medicare Initial AWV [id number] 07/13/2024 Influenza Immunization (#1) 07/13/202508/12, 10/26/2022, 08/03/2021, Additional history exists SARS-COV-2 Immunization ( - 2024- season) 2025 10/26/2021 Respiratory Syncytial Virus (RSV) Immunization (Adult) (1 - 1-dose 75+ series) 02/03/2039 Zoster Immunization Completed 02/08/2021, PSA Discussion Completed 09/17/2023 Human Papillomavirus (HPV) Immunization Aged Out No longer eligible based on patient's age to complete this topic Meningococcal Immunization (ACWY) Aged Out No longer eligible based on patient's age to complete this topic Rotavirus Immunization Aged Out No lo nger eligible based on patient's age to complete this topic Procedures Procedure Name Priority Date/Time Associated Diagnosis Comments PSA DIAGNOSTIC,TOTAL Routine 09/17/2023 9:42 AM VACUUM EVAPORATION OPERATOR Enlarged prostate PSA elevation from Last 3 Months or Most Recently Relevant to Health Maintenance Results * PSA DIAGNOSTIC,TOTAL (09/17/2023 9:42 AM VACUUM EVAPORATION OPERATOR) PSA, TOTAL (PROSTATIC SPECIFIC ANTIGEN) 3.76 <4.00 ng/mL 09/17/2023 12:08 PM VACUUM EVAPORATION OPERATOR [facility] Blood Venipuncture / Unknown 09/17/2023 9:42 AM VACUUM EVAPORATION OPERATOR 09/17/2023 11:24 AM VACUUM EVAPORATION OPERATOR Narrative [facility] - 09/17/2023 12:08 PM VACUUM EVAPORATION OPERATOR PSA NOTE: The PSA value should be used in conjunction with information available from clinical evaluation and other diagnostic procedures. The [employer]ync SystemsNIKitBoost Total PSA assay is a Chemiluminescent Microparticle Immunoassay (CMIA) for the quantitative determination of total PSA (both free PSA and PSA complexed to [id number]) in human serum. Total PSA values obtained with different assay methods, including Suarez PSA assays, cannot be used interchangeably. us Ana Dominguez III, MD CHEMISTRY ORDERABLES Fin al Result [facility] [address] [place] [address] from Last 3 Months or Most Recently Relevant to Health Maintenance Insurance MEDICARE C [employer] Care Teams Dental Assistant Instructor Relationship Specialty Start Date End Date Alan Schmitz MD [address] [address] PCP - General Family Medicine 08/29/23 Ana Dominguez III, MD [address] [place] [address] Consulting Physician Urology 09/12/23
[2025-09-11 12:53] LABS: Hematocrit 47.3 % (42.0-52.0); Hemoglobin 16.0 g/dL (14.0-18.0); Immature Granulocyte Percent A 1.2 % (0-0.5); Lymphocytes Absolute Auto 2.01 K/mm3 (0.9-3.2); Mean Corpuscular HGB Conc 33.8 g/dl (32-36); Mean Corpuscular Hemoglobin 30.8 pg (26-34); Mean Corpuscular Volume 91.0 fl (80-100); Nucleated Red Blood Cells Absolute Auto 0.000 K/mm3 (0.0-0.012); Nucleated Red Blood Cells Perc 0.0 % (0.0-0.2); Platelet Count Result 231 k/mm3 (150-375); Red Blood Count 5.20 M/mm3 (4.6-6.20); White Blood Count 5.9 K/mm3 (4.5-10.0)
[2025-09-11 13:13] LABS: Alanine Aminotransferase 22 U/L (6-50); Albumin Level 3.9 g/dL (3.5-5.1); Alkaline Phosphatase 86 U/L (38-126); Anion Gap 6 mmol/L (4-12); Aspartate Amino Transferase 28 U/L (17-59); Bilirubin,Total 0.3 mg/dL (0.2-1.3); Blood Urea Nitrogen 15 mg/dL (9-20); Calcium 8.7 mg/dL (8.4-10.2); Carbon Dioxide 28 mmol/L (22-30); Chloride 103 mmol/L (98-107); Cholesterol 206 mg/dL (0-200); Estimated Glomerular Filt Rate > 60; Glucose 113 mg/dL (65-110); HDL Direct 39 mg/dL; Potassium 4.1 mmol/L (3.4-5.0); Sodium 137 mmol/L (137-145); Total Protein 6.8 g/dL (6.3-8.2); Triglycerides 427 mg/dL (<150)
[2025-09-11 13:49] LABS: Prostate Specific Antigen 3.2 ng/mL (< OR = 4.0)
== END 2025-09-11 11:25 | disposition home or self-care (01) ==
LOC: ANHLAB 11:25
PROVIDERS: PCP Family Medicine; Visit Provider Nurse Practitioner Family
DX: Z12.5 Encounter for screening for malignant neoplasm of prostate (principal); Z13.220 Encounter for screening for lipoid disorders; Z13.1 Encounter for screening for diabetes mellitus; E78.2 Mixed hyperlipidemia
CPT/HCPCS: 36415; 80053; 80061; 84153; 85025; G0103

== ENCOUNTER 2025-09-22 12:37 | Outpatient (CLI) | payer MEDICARE, SELFPAY ==
--- OUTSIDE RECORDS SUMMARY | 2008-06-05 03:31 | XMS_ITS | Continuity of Care Document ---
Author Organization [facility] Address [address] [place] [address] [place] [address] Phone Care Team Providers Care Air Quality Specialist Name Role Phone Jv Garcia Unavailable Unavailable Procedures Procedure Date Office/outpatient Visit, [facility] Office/outpatient Visit, New Advance Directives Directive Yes / No Effective Date File Name No Information Encounters Encounter Description Practice Location Reason(s) For Visit Diagnoses Date Provider Providers Copied on Encounter Office/outpat ient Visit, [facility], [address] [place] [address] [address], [place], [place], [id number], tel:[phone] [facility] [place] No Information 8 Jose Carias. [facility] , [address], [place], [address], [place]. tel:[phone] Office/outpat ient Visit, [facility], [address] [place] [address] [address], [place], [place], [id number], tel:[phone] [facility] [place] No Information 200 8 Jose Carias. [address] [facility] [address], [address], [place], [address], [place]. tel:[phone] Family History Family Member Type Diagnosis Age At Onset No Information Payers Payer name Insurance type Covered constitution party ID Authoryaz terrazas(s) [email or web address] [id number] Social History Type Description Quantity Date Captured Comments Sex Male Smoking Status No Information Chief Complaint And Reason For Visit No Information Reason For Referral Reason For Referral No Information History Of Present Illness Encounter Date Complaint History Of Prese nt Illness No Information Functional Status Date Functional Assessmen t No Information Instructions Date Instruction Additional Infor mation No Information Assessments Type Assessment Date No Information Patient Care Teams Name Effective Dates (start - stop) Status Members No Information
--- OUTSIDE RECORDS SUMMARY | 2024-08-25 07:00 | XMS_ITS ---
Author Organization [facility] Address [address] [place] [address] Care Team Providers Care Anthropologist Name Role Phone Ofelia Fowler Primary Care Provider REASON FOR VISIT 1 Month Psych F/U & Med Refill Medications Medication SIG (Take, Route, Frequency, Duration) Notes Start Date End Date Status Prazosin HCl 5 mg TAKE 3 CAPSULES BY MOUTH AT BEDTIME; Duration: 28 Active lamoTRIgine 150 mg TAKE 1 TABLET BY MOUTH TWICE A DAY; Duration: 28 Active QUEtiapine Fumarate 50 mg TAKE 1 TABLET BY MOUTH AT BEDTIME; Duration: 28 Active FLUoxetine HCl 40 mg TAKE 1 CAPSULE BY MOUTH EVERY MORNING; Duration: 28 Active diazePAM 5 mg TAKE 1 TABLET BY MOUTH THREE TIMES A DAY IF NEEDED; Duration: 30 days 07/22/2024 Active Meloxicam 15 MG 1 tablet Orally Once a day Active Lisinopril 40 MG 1 tablet Orally Once a day Active QUEtiapine Fumarate 300 mg TAKE 2 TABLETS BY MOUTH AT BEDTIME; Duration: 28 Active Omeprazole 40 MG 1 capsule 30 minutes before morning meal Orally Once a day Active buPROPion HCl ER (XL) 300 mg TAKE 1 TABLET BY MOUTH EVERY MORNING; Duration: 28 Active Tamsulosin HCl 0.4 MG 1 capsule Orally Once a day; Duration: 30 day(s) Active Atorvastatin Calcium 40 MG 1 tablet Orally Once a day Active tiZANidine HCl 2 MG 1 tablet as needed Orally Three times a day Active rOPINIRole HCl 4 MG 1 tablet 1 to 3 hours before bedtime Orally Once a day; Duration: 30 day(s) Active Bystolic 2.5 MG 1 tablet Orally Once a day Active Prazosin HCl 5 MG three at bedtime Orally at night; Duration: 30 days Active Qvar shortness of breath Active Albuterol Sulfate shortness of breath Active Wellbutrin XL 300 MG 1 tablet Orally every morning; Duration: 30 days Active diazePAM 5 mg TAKE 1 TABLET BY MOUTH THREE TIMES A DAY IF NEEDED; Duration: 30 days 07/23/2024 Active SEROquel 50 MG 1 tablet at bedtime Orally Once a day; Duration: 30 days Active PROzac 40 MG 1 capsule Orally every morning; Duration: 30 days Active lamoTRIgine 150 MG 1 tablet Orally Twice a day; Duration: 30 days Active SEROquel 300 MG two tablets Orally at bedtime; Duration: 30 days Active Social History Sex Assigned At : Social History Observation Description Sex Assigned At Male Encounters Encounter Location Date Provider Diagnosis [address] [place] [address] 08/25/2024 Ofelia Fowler Plan Of Treatment No Information Progress Notes * Jian BROWN LDOB:[birth year] (60 yo M)Acc No.[id number]:08/25/2024 UNLOCKED PROGRESS NOTE Patient: Devi KOEHLER Jian Marco Provider: Jessica Fowler, MSN, INDEX CLERK, FABRICATOR ASSEMBLER METAL PRODUCTS-C :1965 A ge:59 Y S ex:Male Date:08/25/2024 Address:[address] [place], [place] [id number] Subjective: * Chief Complaints: * 1 . 1 Month Psych F/U & Med Refill. * Medical History: * Medications: T aking SEROquel 50 MG Tablet 1 tablet at bedtime Orally Once a day , Taking PROzac 40 MG Capsule 1 capsule Orally every morning , Taking lamoTRIgine 150 MG Tablet 1 tablet Orally Twice a day , Taking SEROquel 300 MG Tablet two tablets Orally at bedtime , Taking Prazosin HCl 5 MG Capsule three at bedtime Orally at night , Taking Wellbutrin XL 300 MG Tablet Extended Release 24 Hour 1 tablet Orally every morning , Taking diazePAM 5 mg Tablet TAKE 1 TABLET BY MOUTH THREE TIMES A DAY IF NEEDED , Taking Qvar , Notes to Pharmacist: shortness of breath, Taking Albuterol Sulfate , Notes to Pharmacist: shortness of breath, Taking tiZANidine HCl 2 MG Tablet 1 tablet as needed Orally Three times a day , Taking rOPINIRole HCl 4 MG Tablet 1 tablet 1 to 3 hours before bedtime Orally Once a day , Taking Tamsulosin HCl 0.4 MG Capsule 1 capsule Orally Once a day , Taking Atorvastatin Calcium 40 MG Tablet 1 tablet Orally Once a day , Taking Bystolic 2.5 MG Tablet 1 tablet Orally Once a day , Taking Meloxicam 15 MG Tablet 1 tablet Orally Once a day , Taking Lisinopril 40 MG Tablet 1 tablet Orally Once a day , Taking Omeprazole 40 MG Capsule Delayed Release 1 capsule 30 minutes before morning meal Orally Once a day , Taking buPROPion HCl ER (XL) 300 mg Tablet Extended Release 24 Hour TAKE 1 TABLET BY MOUTH EVERY MORNING , Taking QUEtiapine Fumarate 300 mg Tablet TAKE 2 TABLETS BY MOUTH AT BEDTIME , Taking diazePAM 5 mg Tablet TAKE 1 TABLET BY MOUTH THREE TIMES A DAY IF NEEDED , Taking QUEtiapine Fumarate 50 mg Tablet TAKE 1 TABLET BY MOUTH AT BEDTIME , Taking FLUoxetine HCl 40 mg Capsule TAKE 1 CAPSULE BY MOUTH EVERY MORNING , Taking Prazosin HCl 5 mg Capsule TAKE 3 CAPSULES BY MOUTH AT BEDTIME , Taking lamoTRIgine 150 mg Tablet TAKE 1 TABLET BY MOUTH TWICE A DAY Objective: * Vitals: Assessment: Plan: * Treatment: * * Electronic signature of Suyapa Fowler , [id number] on 09/22/2025 at 12:39 PM SKILLED NURSING CASE MANAGER Sign off status: Pending * Provider: Jessica Fowler, MSN, INDEX CLERK, FABRICATOR ASSEMBLER [employer]-C Date: Generated for Lisset watson/Ry/Kane on: 11/22/2024 12:39 PM SKILLED NURSING CASE MANAGER
--- OUTSIDE RECORDS SUMMARY | 2024-10-06 03:20 | XMS_ITS ---
Author Organization [facility] Address [address] [place] [address] Care Team Providers Care Rheumatology Specialist Name Role Phone Ofelia Fowler Primary Care Provider [phone] REASON FOR VISIT 4 week F/U Social History Sex Assigned At : Social History Observation Description Sex Assigned At Male Encounters Encounter Location Date Provider Diagnosis [address] [address] 10/06/2024 Ofelia Fowler Plan Of Treatment No Information Progress Notes * Jian LEVI LDOB:[birth year] (60 yo M)Acc No.[id number]:10/06/2024 UNLOCKED PROGRESS NOTE Patient: Jian REY Provider: Jessica Fowler, MSN, DRIVER MEDIC, TELETRAY OPERATOR-C :1965 A ge:59 Y S ex:Male Date:10/06/2024 Address:[address] [facility] Subjective: * Chief Complaints: * 1 . 4 week F/U. * Medical History: Objective: * Vitals: Assessment: Plan: * Treatment: * * Electronic signature of Suyapa Fowler , [id number] on 09/22/2025 at 12:39 PM OFFICE CLERK ROUTINE Sign off status: Pending * Provider: Jessica Fowler, MSN, DRIVER MEDIC, TELETRAY OPERATOR-C Date: 12/06/2023 Generated for Printi ng/Faxing/eTransmitting on: 11/22/2024 12:39 PM OFFICE CLERK ROUTINE
--- OUTSIDE RECORDS SUMMARY | 2025-09-22 12:40 | XMS_ITS | Clinical Summary ---
Author Organization [facility] [employer] Address [address] [place] [address] Care Team Providers Care Batch Weigher Name Role Phone Alan Schmitz MD Primary Care Provider [phone] Source Comments [facility] [employer],non-owned Affiliates and Associated Physician Practices is amultiple site organization consisting of ambulatory clinics and hospital sitesin [place], [place], [place] and [place]. This disclosure is being madepursuant to the Care Everywhere program and may not contain all information available regarding this patient. Last updated 18.[facility] [employer] Allergies No known active allergies Medications * [...] Family History Medical History Relation Name Comments ME Brother Cancer Father Relation Name Status Comments [...] age to complete this topic Insurance [address] MANAGED MEDICARE ADV [facility] MEDICARE MEDICARE [facility] Advance Directives * Full Code (Latest Code Status on File) Date Activated Date Inactivated Comments 03/24/2015 12:05 AM 03/25/2015 8:51 AM Care Teams Batch Weigher Relationship Specialty Start Date End Date Alan Schmitz MD [address] [place] [address] PCP - General Family Medicine 03/23/15
--- OUTSIDE RECORDS SUMMARY | 2025-09-22 12:40 | XMS_ITS | Encounter Summary ---
Author Organization [facility] Health Address [address] [place] [address] Care Team Providers Care Milk Route Supervisor Name Role Phone Alan Schmitz MD Primary Care Provider [phone] Encounter Details Date Type Department Care Team (Late st Contact Info) Description 10/20/2020 Lab Requisition [facility] Care DermPath Lab [address] [place] [phone] Alan Schmitz MD [address] [place] [address] Social History Tobacco Use Types [...] Comments DERMATOPATHOLOGY Routine 10/20/2020 12:0 0 AM BEDSPREAD CUTTER documented in this encounter Results * DERMATOPATHOLOGY (10/20/2020 12:00 AM BEDSPREAD CUTTER) Case Report Dermatopathology Report Case: [id number] Authorizing Provider: Alan Schmitz MD Collected: 10/20/2020 12:00 AM Ordering Location: [facility] Received: 10/20/2020 12:14 PM Pathologist: Alka Reed MD Specimen: Skin, left upper back 0 3:04 PM [facility] DERMATOPATHOLOGY LABORATORY Final Diagnosis Specimen A. SKIN, left upper back: BENIGN VERRUCOUS KERATOSIS, INFLAMED (L82.1) PRESENT AT MARGIN 0 3:04 PM [facility] DERMATOPATHOLOGY LABORATORY at 1504 BEDSPREAD CUTTER Clinical History Changing lesion. Check margins. 0 3:04 PM [facility] DERMATOPATHOLOGY LABORATORY Gross Description Specimen A: Received is one formalin filled container labeled with the patient's name and designated left upper back. The specimen consists of a shave biopsy (2 pieces) measuring [id number] & [id number]. The margin is inked green. Jar 0. 0 3:04 PM [facility] DERMATOPATHOLOGY LABORATORY Microscopic Description Specimen A. SKIN, left upper back: Sections show hyperkeratosis, papillomatosis, hypergranulosis, and acanthosis. Inflammatory cells are present within the dermis. These histological findings can be seen in a verruca vulgaris or a seborrheic keratosis. This lesion is present at the margin of the specimen. 0 3:04 PM [facility] DERMATOPATHOLOGY LABORATORY Disclaimer An external and internal positive and negative controls are appropriate for the histochemical, immunohistochemical and immunofluorescence stain(s) in this case (if any), except where stated explicitly. The performance characteristics of the stain(s) cited in this report were developed and its performance characteristic determined by the Dermatopathology Laboratory at [facility], directed by Dr. Rosalia Reed. These tests need not be, and therefore are not, approved by the [place] Food and Drug Administration. The tests are used for clinical purposes. Billing Codes Specimen Charges Stain Charges 34886 1 0 3:04 PM BEDSPREAD CUTTER DERMATOPATHOLOGY LABORATORY Embedded Images 0 3:04 PM [facility] DERMATOPATHOLOGY LABORATORY Pathology/Cytolog y TISSUE SPECIMEN FROM SKIN / Unknown 10/20/2020 10/20/2020 12:14 PM BEDSPREAD CUTTER Alan Schmitz MD LAB - PATHOLOGY/CYTOLOGY [facility] Final Result DERMATOPATHOLOGY LABORATORY [facility] - Department of Dermatology [facility] Medicine [address] [place] [address], [address] [phone] documented in this encounter Visit Diagnoses Not on filedocumented in this encounter Care Teams Milk Route Supervisor Relationship Specialty Start Date End Date Alan Schmitz MD [address] [place] [address] PCP - General Family Medicine 03/23/15 documented as of this encounter
--- OUTSIDE RECORDS SUMMARY | 2025-09-22 12:40 | XMS_ITS | Patient Health Record ---
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 Stress is when someone feels tense, nervous, anxious, or can\t sleep at night because their mind is troubled Very much In the past year have you sp ent more than 2 nights in a row in a intermediate, fci, shelter center, or juvenile correctional facility? No Are you a refugee? No What country are you from? [place] Do you feel physically and e motionally safe where you currently live? No In the past year, have you b een afraid of your partner or ex-partner? No PRAPARE Score: 8 Tobacco Control (Standard) Question Answer Notes Tobacco use: Nonsmoker Section Notes: [id number] 03/29/2023 03/29/2023 diazePAM 90.0 30 5 MG Veronica Leung [facility] - [id number] [place], [place] 1 [id number] 03/02/2023 03/02/2023 diazePAM 90.0 30 5 MG Veornica Leung [facility] - [id number] [employer] [place], [place] NA 0 [place] 1 [id number] 01/16/2023 10/26/2022 diazePAM 90.0 30 5 MG Yolie Hodge L, Msn, [facility] - [id number] [place] 1 [id number] 12/21/2022 10/26/2022 diazePAM 90.0 30 5 MG [place]n [id number] 03/29/2023 03/29/2023 diazePAM 90.0 30 5 MG Veronica Leung [facility] - [id number] [place] 1 [id number] 03/02/2023 03/02/2023 diazePAM 90.0 30 5 MG Veronica Leung [facility] - [id number] [place] 1 [id number] 01/16/2023 10/26/2022 diazePAM 90.0 30 5 MG Yolie Hodge L, Msn, [facility] - [id number] [facility] [place], [place], [place] NA 2 [place] 1 [id number] 12/21/2022 10/26/2022 diazePAM 90.0 30 5 MG NA Yolie Nelson L, Msn [id number] 03/29/2023 03/29/2023 diazePAM 90.0 30 5 MG NA Veronica Avendano, [facility] - [id number] [place] 1 [id number] 03/02/2023 03/02/2023 diazePAM 90.0 30 5 MG NA Veronica Avendano, [facility] - [id number] [employer] [place], [place] NA 0 [place] 1 [id number] 01/16/2023 10/26/2022 diazePAM 90.0 30 5 MG NA Yolie Nelson L, Msn, [facility] - [id number] [place], [place] NA 2 [place] 1 [id number] 12/21/2022 10/26/2022 diazePAM 90.0 30 5 MG NA Yolie Nelson L, Msn [id number] 05/22/2023 05/22/2023 diazePAM 90.0 30 5 MG Veronica Leung, [id number] 03/29/2023 03/29/2023 diazePAM 90.0 30 5 MG NA Veronica Avendano, [facility] - [id number] [place] 1 [id number] 03/02/2023 03/02/2023 diazePAM 90.0 30 5 MG Veronica Leung, [facility] - [id number] [employer] [place], [place] NA 0 [place] 1 [id number] 01/16/2023 10/26/2022 diazePAM 90.0 30 5 MG Yolie Hodge L, Msn, [facility] [id number] [place] 1 [id number] 12/21/2022 10/26/2022 diazePAM 90.0 30 5 MG [place]olie [place] L, Msn [id number] 05/22/2023 05/22/2023 diazePAM 90.0 30 5 MG NA RomanaBalbirae [place], [id number] 03/29/2023 03/29/2023 diazePAM 90.0 30 5 MG Balbir Leungae Alka, [facility] - [id number] [place] 1 [id number] 03/02/2023 03/02/2023 diazePAM 90.0 30 5 MG NA Romana Veronica M, [facility] - [id number] [place] 1 [id number] 01/16/2023 10/26/2022 diazePAM 90.0 30 5 MG NA Yolie Nelson L, Msn, [facility] - [id number] [employer] [place], [place] NA 2 [place] 1 [id number] 12/21/2022 10/26/2022 diazePAM 90.0 30 5 MG NA Yolie Nelson L, Msn [id number] 05/22/2023 05/22/2023 diazePAM 90.0 30 5 MG NA Romana Veronica M, [id number] 03/29/2023 03/29/2023 diazePAM 90.0 30 5 MG NA Romana, Veronica M, [facility] - [id number] [place] 1 [id number] 03/02/2023 03/02/2023 diazePAM 90.0 30 5 MG NA Veronica Avendaon, [facility] - [id number] [place] 0 [place] 1 [id number] 01/16/2023 10/26/2022 diazePAM 90.0 30 5 MG NA Yolie Nelson L, Msn, [facility] - [id number] [place] 2 [place] 1 [id number] 12/21/2022 10/26/2022 diazePAM 90.0 30 5 MG NA Yolie Nelson L, Msn [id number] 05/22/2023 05/22/2023 diazePAM 90.0 30 5 MG NA Veronica Avendano, [id number] 03/29/2023 03/29/2023 diazePAM 90.0 30 5 MG NA Veronica Avendano, [employer] - [id number] [place], [place] NA 0 [place] 1 [id number] 03/02/2023 03/02/2023 diazePAM 90.0 30 5 MG NA Veronica Avendano, [employer] [facility] - [id number] [employer] [place], [place] NA 0 [place] 1 [id number] 01/16/2023 10/26/2022 diazePAM 90.0 30 5 MG NA Yolie Nelson L, Msn, [employer] [facility] - [id number] [place] NA [place] 1 [id number] 12/21/2022 10/26/2022 diazePAM 90.0 30 5 MG Yolie [place] L, Msn [id number] 05/22/2023 05/22/2023 diazePAM 90.0 30 5 MG NA Veronica Avendano, [id number] 03/29/2023 03/29/2023 diazePAM 90.0 30 5 MG Veronica Leung, [facility]- - [id number] [employer] [place], [place] NA 0 [place] 1 [id number] 03/02/2023 03/02/2023 diazePAM 90.0 30 5 MG Veronica Leung, [facility] - [id number] [employer] [place], [place] NA 0 [place] 1 [id number] 01/16/2023 10/26/2022 diazePAM 90.0 30 5 MG Yolie Hodge L, Msn, [facility] - [id number] [employer] [place], [place] NA 2 [place] 1 [id number] 12/21/2022 10/26/2022 diazePAM 90.0 30 5 MG [place], Msn [id number] 05/22/2023 05/22/2023 diazePAM 90.0 30 5 MG NA Veronica Avendano, [id number] 03/29/2023 03/29/2023 diazePAM 90.0 30 5 MG NA Veronica Avendano, [facility] - [id number] [employer] [place], [place] NA 0 [place] 1 [id number] 03/02/2023 03/02/2023 diazePAM 90.0 30 5 MG NA Veronica Avendano, [facility] - [id number] [employer] [place], [place] NA 0 [place] 1 [id number] 01/16/2023 10/26/2022 diazePAM 90.0 30 5 MG NA Yolie Nelson L, Msn, [employer] [facility] - [id number] [employer] [place], [place] NA 2 [place] 1 [id number] 12/21/2022 10/26/2022 diazePAM 90.0 30 5 MG NA [place]ie [place] L, Msn [id number] 05/22/2023 05/22/2023 diazePAM 90.0 30 5 MG NA Veronica Aevndano, [id number] 03/29/2023 03/29/2023 diazePAM 90.0 30 5 MG NA Veronica Avendano, [facility] - [id number] [place], [place] NA 0 [place] 1 [id number] 03/02/2023 03/02/2023 diazePAM 90.0 30 5 MG NA Veronica Avendano, [facility]- - [id number] [employer] [place], [place] NA 0 [place] 1 [id number] 01/16/2023 10/26/2022 diazePAM 90.0 30 5 MG NA Yolie Nelson L, Msn, [employer] [facility] - [id number] [employer] [place], [place] NA 2 [place] 1 [id number] 12/21/2022 10/26/2022 diazePAM 90.0 30 5 MG [place]olie [place] L, Msn [id number] 05/22/2023 05/22/2023 diazePAM 90.0 30 5 MG NA Veronica Avendano, [id number] 03/29/2023 03/29/2023 diazePAM 90.0 30 5 MG Veronica Leung, [facility]- - [id number] [employer] [place], [place] NA 0 [place] 1 [id number] 03/02/2023 03/02/2023 diazePAM 90.0 30 5 MG Veronica Leung, [facility]- - [id number] [employer], [place], [place] NA 0 [place] 1 [id number] 01/16/2023 10/26/2022 diazePAM 90.0 30 5 MG NA Yolie Nelson L, Msn, [facility] - [id number] [place] NA 2 [place] 1 [id number] 12/21/2022 10/26/2022 diazePAM 90.0 30 5 MG NA Yolie Nelson L, Msn [id number] 05/22/2023 05/22/2023 diazePAM 90.0 30 5 MG NA Veronica Avendano, [id number] 08/01/2021 06/22/2021 diazePAM 90 30 5MG NA Yolie Nelson L, Msn, [facility] - [id number] [place] 1 [id number] 07/07/2021 06/22/2021 diazePAM 90 30 5MG NA Yolie Nelson L, Msn, [facility] - [id number] [employer] [place], [place] 1 [id number] 06/15/2021 06/15/2021 Acetaminophen-codeine Phosphate 30 7 300 MG-30 MG 19.29 [facility] - [id number] [place] 1 [id number] 06/09/2021 05/25/2021 diazePAM 90 30 5MG NA Yolie Nelson L, Msn, [facility] - [id number] [address] [place], [place] 1 [id number] 05/09/2021 04/28/2021 diazePAM 90 30 5MG NA Yolie Nelson L, Msn, [facility] - [id number] [employer] [place], [place] 1 [id number] 04/13/2021 04/13/2021 diazePAM 90 30 5MG NA Yolie Nelson L, Msn, [facility] - [id number] [employer] [place], [place] 1 [id number] 03/16/2021 03/16/2021 diazePAM 90 30 5MG [id number] 03/29/2023 03/29/2023 diazePAM 90.0 30 5 MG NA Veronica Avendano, [facility] - [id number] [employer] [place], [place] NA 0 [place] 1 [id number] 03/02/2023 03/02/2023 diazePAM 90.0 30 5 MG NA Veronica Avendano, [employer] - [id number] [place] NA 0 [place] 1 840652 01/16/2023 10/26/2022 diazePAM 90.0 30 5 MG NA Yolie Nelson L, Msn, [facility] - [id number] [place] 2 [place] 1 [id number] 12/21/2022 10/26/2022 diazePAM 90.0 30 5 MG Yolie Hodge L, Msn [id number] 05/22/2023 05/22/2023 diazePAM 90.0 30 5 MG NA Veronica Avendano, Problems Problem Type SNOMED Code ICD Code Onset Dates Problem Status W/U Status Risk Notes Problem Anxiety disorder (814070511) Anxiety disorder, unspecified (F41.9) Active confirmed Problem Posttraumatic stress disorder (86557767) PTSD (post-traumatic stress disorder) (F43.10) Active confirmed Problem Chronic posttraumatic stress disorder (746412125) Chronic posttraumatic stress disorder (F43.12) Active confirmed Problem Generalized anxiety disorder (06321729) DORINDA (generalized anxiety disorder) (F41.1) Active confirmed Problem Cannabis abuse (40559934) Cannabis abuse (F12.10) 10/26/20 22 Active confirmed Problem Overweight (262865187) Over weight (E66.3) Active confirmed Problem Bipolar disorder (33681763) Bipolar depression (F31.9) Active confirmed Vital Signs Heart Rate 104 /min 08/10/2025 Temperature 97.6 degrees Fahrenheit 08/10/2025 Respiratory Rate 16 /min 08/10/2025 Oximetry 97 % 08/10/2025 Blood pressure diastolic 82 mm Hg 08/10/2025 Height 69 inches in 08/10/2025 Blood pressure systolic 128 mm Hg 08/10/2025 Weight 177.4 lbs lbs 08/10/2025 BMI 26.19 kg/m2 08/10/2025 Encounters Encounter Location Date Provider Diagnosis [address] [place] [address] 11/03/2024 Ofelia Fowler PTSD (post-traumatic stress disorder) F43.10 ; Bipolar depression F31.9 ; DORINDA (generalized anxiety disorder) F41.1 ; Cannabis use disorder F12.90 and Nutritional counseling Z71.[address] [address] 12/08/2024 Ofelia Malcolm Nutritional counseling Z71.3 ; PTSD (post-traumatic stress disorder) F43.10 ; DORINDA (generalized anxiety disorder) F41.1 ; Bipolar depression F31.9 and Cannabis use disorder F12.[address] [address] 01/26/2025 Ofeliachino HunterMalcolm Nutritional counseling Z71.3 ; PTSD (post-traumatic stress disorder) F43.10 ; DORINDA (generalized anxiety disorder) F41.1 ; Bipolar depression F31.9 and Cannabis use disorder F12.[address] [address] 03/23/2025 Ofeliachino HunterMalcolm Nutritional counseling Z71.3 ; PTSD (post-traumatic stress disorder) F43.10 ; DORINDA (generalized anxiety disorder) F41.1 ; Bipolar depression F31.9 and Cannabis use disorder F12.[address] [address] 06/01/2025 Ofeliachino HunterMalcolm Nutritional counseling Z71.3 ; PTSD (post-traumatic stress disorder) F43.10 ; DORINDA (generalized anxiety disorder) F41.1 ; Bipolar depression F31.9 and Cannabis use disorder F12.[address] [address] 08/10/2025 Ofelia Fowler Over weight E66.3 ; Nutritional counseling Z71.3 ; PTSD (post-traumatic stress disorder) F43.10 ; DORINDA (generalized anxiety disorder) F41.1 ; Bipolar depression F31.9 and Cannabis use disorder F12.[address] [address] 09/29/2024 Ofelia Fowler [facility] [address] [place] [address] 11/27/2024 Ofelia Fowler Assessments Encounter Date Diagnosis (ICD Code) Assessment Notes Treatment Notes Treatment Clinical Notes Section Notes 11/03/2024 PTSD (post-traumatic stress disorder) (ICD-10 - F43.10) Pt reports that night terrors are under control at this time. Pt has been on this dose for penitentiary 12/08/2024 Nutritional counseling (ICD-10 - Z71.3) 01/26/2025 Nutritional counseling (ICD-10 - Z71.3) 03/23/2025 Nutritional counseling (ICD-10 - Z71.3) 06/01/2025 Nutritional counseling (ICD-10 - Z71.3) 08/10/2025 Over weight (ICD-10 - E66.3) 08/10/2025 Nutritional counseling (ICD-10 - Z71.3) 06/01/2025 PTSD (post-traumatic stress disorder) (ICD-10 - F43.10) Pt reports that night terrors are under control at this time. Pt has been on this dose for penitentiary 03/23/2025 PTSD (post-traumatic stress disorder) (ICD-10 - F43.10) Pt reports that night terrors are under control at this time. Pt has been on this dose for penitentiary 01/26/2025 PTSD (post-traumatic stress disorder) (ICD-10 - F43.10) Pt reports that night terrors are under control at this time. 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 Pt has been on this dose for penitentiary 11/03/2024 Bipolar depression (ICD-10 - F31.9) 11/03/2024 [...] depression and anxiety. Encouraged more socialization. 06/01/2025 DOIRNDA (generalized anxiety disorder) (ICD-10 - F41.1) PDMP checked without concerns. 08/10/2025 PTSD (post-traumatic stress disorder) (ICD-10 - F43.10) Pt reports that night terrors are under control at this time. Pt has been on this dose for penitentiary 08/10/2025 DORINDA (generalized anxiety disorder) (ICD-10 - [...] May also contact the 24-hour crisis hotline ([facility]), refer to the closest emergency [...] May also contact the 24-hour crisis hotline ([facility]), refer to the closest emergency [...] May also contact the 24-hour crisis hotline ([facility]), refer to the closest emergency [...] arise. May also contact the [facility] crisis [facility] ([facility]), refer to the closest emergency [...] May also contact the 24-hour crisis hotline ([facility]), refer to the closest emergency [...] May also contact the 24-hour crisis hotline ([facility]), refer to the closest emergency [...] End Date UHC Medicare Assure [address] [address] [place] [address] [id number] Mari stewart Jian Self - patient is the insured 2 4 [facility] [address] [address] [place] [address] [id number] Mari stewart Jian Self - patient is the insured [address] [place] [address] [id number] Mari stewart Jian Self - patient is the insured 5 MEDICARE PART A [address] [place] [address] [id number] Mari stewart Jian Self - patient is the insured 5 5 MEDICARE [employer] [address] [place] [address] [id number] Mari stewart Jian Self - patient is the insured 6 6 MEDICAID [employer] [address] [place] [address] [id number] Mari stewart Jian Self - patient is the insured 5 6 [facility] Medicare [address] [address] [place] [address] [phone] [id number] Mari stewart Jian Self - patient is the insured 9 2 [facility] MEDICARE FORGE HEATER [address] [address] [place] [address] [id number] Jian Johnson Self - patient is the insured 9 2 [employer] [address] [address] [place] [address] [id number] Jian Johnson Self - patient is the insured 3 3 [employer] MEDICARE ADV [address] [address] [place] [address] [id number] Jian Johnson Self - patient is the insured 3 3 [employer] [address] [address] [place] [address] [id number] Jian Johnson Self - patient is the [...]
--- OUTSIDE RECORDS SUMMARY | 2025-09-22 12:40 | XMS_ITS | Clinical Summary ---
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 Name Role Phone Alan Schmitz MD Primary Care Provider [phone] Angelica GARCIA MD, Ana Unavailable [phone] Allergies No known active allergies Medications buPROPion [...] Comments Blood Pressure 130/80 09/17/2023 9:04 AM DATA ABSTRACTOR Pulse 80 09/17/2023 9:04 AM DATA ABSTRACTOR Temperature 36.2 C (97.1 F) 09/17/2023 9:04 AM DATA ABSTRACTOR Respiratory Rate 19 09/17/2023 9:04 AM DATA ABSTRACTOR Oxygen Saturation 96% 09/17/2023 9:04 AM DATA ABSTRACTOR Inhaled Oxygen Concentration - - Weight 76.2 kg (168 lb) 09/17/2023 9:04 AM DATA ABSTRACTOR Height 175.3 cm (5' 9) 09/17/2023 9:04 AM DATA ABSTRACTOR Body Mass Index 24.81 09/17/2023 9:04 AM DATA ABSTRACTOR Plan of Treatment Health Maintenance Due Date [...] Comments PSA DIAGNOSTIC,TOTAL Routine 09/17/2023 9:42 AM DATA ABSTRACTOR Enlarged prostate PSA elevation from Last 3 Months or Most Recently Relevant to Health Maintenance Results * PSA DIAGNOSTIC,TOTAL (09/17/2023 9:42 AM DATA ABSTRACTOR) PSA, TOTAL (PROSTATIC SPECIFIC ANTIGEN) 3.76 <4.00 ng/mL 09/17/2023 12:08 PM DATA ABSTRACTOR [facility] Blood Venipuncture / Unknown 09/17/2023 9:42 AM DATA ABSTRACTOR 09/17/2023 11:24 AM DATA ABSTRACTOR Narrative [facility] - 09/17/2023 12:08 PM DATA ABSTRACTOR PSA NOTE: The PSA value should be used in conjunction with information available from clinical evaluation and other diagnostic procedures. The [employer] Total PSA assay is a Chemiluminescent Microparticle Immunoassay (CMIA) for the quantitative determination of total PSA (both free PSA and PSA complexed to [id number]) in human serum. Total PSA values obtained with different assay methods, including Suarez PSA assays, cannot be used interchangeably. us Ana Dominguez III, MD CHEMISTRY ORDERABLES Fin al Result [facility] [address] [place] [address] from Last 3 Months or Most Recently Relevant to Health Maintenance Insurance MEDICARE C [employer] Care Teams Grating Machine Operator Relationship Specialty Start Date End Date Alan Schmitz MD [address] [place] [address] PCP - General Family Medicine 08/29/23 Ana Dominguez III, MD [address] [place] [address] Consulting Physician Urology 09/12/23
[2025-09-22 15:42] LABS: Hemoglobin A1C 5.9 % (<5.7)
== END 2025-09-22 12:38 | disposition home or self-care (01) ==
PROVIDERS: PCP Family Medicine; Visit Provider Nurse Practitioner Family
DX: R73.9 Hyperglycemia, unspecified (principal)
CPT/HCPCS: 36415; 83036

== ENCOUNTER 2025-11-08 12:26 | Outpatient (CLI) | payer MEDICARE, SELFPAY ==
--- NOTE | ~2025-11-08 | CT_ITS ---
EXAMINATION: CT chest high resolution wo hi DATE: 11/08/2025 12:59 INDICATION: Emphysema TECHNIQUE: Computed tomography (CT) of the chest was performed without intravenous contrast. The dose-length product was 209.89 mGy-cm. Automated exposure control and iterative reconstruction technique were employed. COMPARISON: CT dated 05/09/2022 FINDINGS: Heart size normal. No significant pleural or pericardial effusion. No thoracic lymphadenopathy. Upper abdomen is unremarkable. Emphysema. Chronic discoid atelectasis right middle lobe. There is dependent atelectasis. Possible mucous plugging right middle lobe bronchus. No suspicious pulmonary nodules or masses. There is diffuse idiopathic skeletal hyperostosis (DISH) of the thoracic spine. No focal lytic or blastic lesions. No acute osseous abnormality. IMPRESSION: 1. Chronic right middle lobe atelectasis. Possible mucus plugging of the right middle lobe bronchus. 2: Emphysema. Reviewed, dictated and finalized at location O. [facility]
== END 2025-11-08 12:27 | disposition home or self-care (01) ==
PROVIDERS: PCP Family Medicine; Visit Provider Nurse Practitioner Adult Health
DX: J98.11 Atelectasis (principal); J43.9 Emphysema, unspecified; Z72.0 Tobacco use
CPT/HCPCS: 71250